=== PATIENT | female | born 1930 | race Caucasian/White ===

== ENCOUNTER 2016-09-09 11:37 | Emergency (ER) | payer MEDICARE ==
[~2016-09-09] VITALS: Ht 157.5 cm; Wt 71.0 kg
[~2016-09-09 11:37] MED LIST: AMLO2.5T PO; ATEN-104 PO; ATOR80TA PO; CALC-137 PO; CHLOR50 PO; LEVEMIR SQ; LISI-363 PO; NITR.4 SL; NOVOLOGP2 SQ; PROT40TA PO; SYSTSOL7 EACH EYE; TAB-TAB PO; TERA2CAP3 PO; VITA10002 PO; VITA20003 PO
[2016-09-09 11:54] VITALS: BP 171/90; PULSE 70; RESP 18; TEMP 97.8; O2SAT 98
[2016-09-09 11:59] VITALS: O2SAT 98
[2016-09-09] MEDS ORDERED: SODIUM CHLORIDE 0.9% FLUSH 5 ML FLUSH IVF PRN (12:00)
[2016-09-09] MEDS ORDERED: ALUMINUM/MAGNESIUM/SIMETH 30 ML CUP PO ONE (12:00)
[2016-09-09] MEDS ORDERED: LIDOCAINE VISCOUS 2% SOLN 15 ML UDC PO ONE (12:00)
[2016-09-09] MEDS ORDERED: PANTOPRAZOLE SODIUM 40 MG VIAL IVP ONE (12:00)
[2016-09-09 12:05] LABS: AUTOMATED NEUTROPHIL # 3.1 TH/MM3 (1.8-7.7); BASOPHIL % 0.4 % (0.0-2.0); EOSINOPHIL # 0.2 TH/MM3 (0-0.4); EOSINOPHIL % 3.2 % (0.0-4.0); HEMATOCRIT 38.8 % (35.0-46.0); HEMO FLAGS DIFF FINAL; LYMPH % 32.6 % (9.0-44.0); LYMPHOCYTE # 1.7 TH/MM3 (1.0-4.8); MEAN CELL VOLUME 82.5 FL (80.0-100.0); MEAN CORPUSCULAR HGB CONC 33.9 % (32.0-36.0); MONO % 7.5 % (0.0-8.0); NEUT % 56.3 % (16.0-70.0); PLATELET COUNT 127 TH/MM3 (150-450); RED BLOOD COUNT 4.71 MIL/MM3 (4.00-5.30); RED CELL DISTRIBUTION WIDTH 13.9 % (11.6-17.2); WHITE BLOOD COUNT 5.4 TH/MM3 (4.0-11.0)
[2016-09-09 12:11] LABS: CHLORIDE 103 MEQ/L (98-107); POTASSIUM 3.6 MEQ/L (3.5-5.1); SODIUM (NA) 140 MEQ/L (136-145)
[2016-09-09 12:14] LABS: ANION GAP 9 MEQ/L (5-15); BICARBONATE 28.5 MEQ/L (21.0-32.0)
[2016-09-09 12:15] LABS: BLOOD UREA NITROGEN 22 MG/DL (7-18)
[2016-09-09 12:18] LABS: ALT (GPT) 79 U/L (10-53); AST (GOT) 105 U/L (15-37); GLOMERULAR FILTRATION RATE 39 ML/MIN (>89)
[2016-09-09 12:19] LABS: TOTAL BILIRUBIN ADULT 0.6 MG/DL (0.2-1.0)
[2016-09-09 12:21] LABS: ALKALINE PHOSPHATASE 83 U/L (45-117)
--- NOTE | 2016-09-09 12:35 | PD ---
HPI . Epigastric pain Chief Complaint: Chest Pain Time Seen by Provider: 11:49 Travel History International Travel<30 days: No Contact w/Intl Traveler<30days: No Traveled to known affect area: No History of Present Illness HPI Patient presents with a 3 day history of epigastric pain. She states that the discomfort is improved with Pepto-Bismol. She states that her discomfort to be brought on by eating greasy fish. Patient reports positive previous similar episodes. She states that he has intermittent dyspepsia. She further states that her symptoms for the last 3 days have also been intermittent. She denies any associated symptoms such as shortness of breath, nausea or vomiting, diaphoresis. The patient is very reluctant to have any sort of testing done. She is not at all interested in having her heart evaluated. PFSH Past Medical History Blood Disorders: No Anxiety: Yes Depression: No Heart Rhythm Problems: No Cancer: No Cardiac Catheterization: No Cardiovascular Problems: Yes High Cholesterol: Yes Chemotherapy: No Chest Pain: No Congestive Heart Failure: No Diabetes: Yes (SINCE 10 YEARS AGO) Patient Takes Glucophage: No Diminished Hearing: Yes Endocrine: Yes Gastrointestinal Disorders: Yes (DIARRHEA DUE TO MEDICATIONS) GERD: Yes Genitourinary: No Hepatitis: No Hiatal Hernia: No Hypertension: Yes Immune Disorder: No Musculoskeletal: No Neurologic: Yes (MIGRAINE HEADACHE) Psychiatric: Yes Reproductive: No Respiratory: No Immunizations Current: Yes Radiation Therapy: No Thyroid Disease: No Tetanus Vaccination: Unknown Influenza Vaccination: Yes PNEUMOCCOCAL Vaccine (Year): 1 Menopausal: Yes Past Surgical History Body Medical Devices: ACID REFLEX Cholecystectomy: Yes Oral Surgery: Yes (WISDOM TEETH EXTRACT.) Pacemaker: No Other Surgery: No Family History Family Myocardial Infarction: Yes (MOTHER OF HEART ATTACK IN HER 70'S) Social History Alcohol Use: No Tobacco Use: No Substance Use: No Allergies-Medications (Allergen,Severity, Reaction): Coded Allergies: No Known Allergies (Verified , 09/09/16) Reported Meds & Prescriptions Reported Meds & Active Scripts Active Carafate (Sucralfate) 1 Gm Tab 1 Gm PO QID PRN On empty stomach Reported Vitamin D-3 (Cholecalciferol) 2,000 Unit Tab 1 Tab PO BID Tresiba Flextouch Pen Inj (Insulin Degludec Inj) 300 unit/3 ML Pen 50 Units SQ DAILY Terazosin (Terazosin HCl) 2 Mg Cap 4 Mg PO BID Systane Opth Drops (Polyethylene Glycol-Propylene Glycol Opth Drp) 0.4-0.3% Soln 1-2 Drop EACH EYE PRN PRN Shaq-E Complete (S-Adenosylmethionine) 400 Mg Tab 400 Mg PO DAILY Rosuvastatin (Rosuvastatin Calcium) 40 Mg Tab 40 Mg PO DAILY Red Yeast Rice (Red Yeast Rice Extract) 600 Mg Tab 1 Cap PO BID Omeprazole 20 Mg Tab 20 Mg PO DAILY Novolog Inj (Insulin Aspart) 1,000 Unit/10 Ml Vial 15 Units SQ TIDAC Multi Complete (Multiple Vitamins W/ Minerals) 1 Cap Cap 1 Tab PO DAILY Lisinopril 20 Mg Tab 20 Mg PO DAILY Curcumax Pro ([facility] [place] [facility]) 1 Tab Tab 1 Tab PO DAILY Cholesterol Defense (Nutritional Supplements) 1 Tab Tab 1 Tab PO BID Chlorthalidone 100 Mg Tab 100 Mg PO DAILY Atenolol 100 Mg Tab 100 Mg PO DAILY Aspirin 81 Mg Chew 81 Mg CHEW DAILY Aloe Vera Juice Liq (Aloe Vera Liq) 99.8% Liqd 5 Ml PO BID Review of Systems Except as stated in HPI: all other systems reviewed are Neg Cardiovascular: Positive: Chest Pain or Discomfort Respiratory: No: Shortness of Breath Gastrointestinal: Positive: Indigestion, No: Nausea, Vomiting, Diarrhea Physical Exam Narrative GENERAL: [place] elderly woman who is in no acute distress. SKIN: Warm and dry. HEAD: Atraumatic. Normocephalic. EYES: Pupils equal and round. ENT: No nasal bleeding or discharge. Mucous membranes pink and moist. NECK: Trachea midline. CARDIOVASCULAR: Regular rate and rhythm. Heart sounds are normal. RESPIRATORY: No accessory muscle use. Lungs are clear with full air movement throughout. GASTROINTESTINAL: Abdomen soft. Epigastric tenderness. No guarding or rebound. No right upper quadrant tenderness. Nondistended. MUSCULOSKELETAL: No obvious deformities. No edema. NEUROLOGICAL: Awake and alert. No obvious cranial nerve deficits. Motor grossly within normal limits. Normal speech. PSYCHIATRIC: Appropriate mood and affect; insight and judgment normal. Data Data Last Documented VS Vital Signs Date Time Temp Pulse Resp B/P Pulse Ox O2 Delivery O2 Flow Rate FiO2 09/09/16 12:47 58 18 189/90 98 Room Air 09/09/16 11:54 97.8 Orders Complete Blood Count With Diff (09/09/16 11:54) Comprehensive Metabolic Panel (09/09/16 11:54) Lipase (09/09/16 11:54) Abdomen, Flat & Upright (09/09/16 ) Iv Access Insert/Monitor (09/09/16 11:54) Ecg Monitoring (09/09/16 11:54) Oximetry (09/09/16 11:54) Pantoprazole Inj (Protonix Inj) (09/09/16 12:00) Sodium Chloride 0.9% Flush (Ns Flush) (09/09/16 12:00) Chest, Single Ap (09/09/16 11:54) Al-Mag Hy-Si 40-40-4 Mg/Ml Liq (Mag-Al P (09/09/16 12:00) Lidocaine 2% Viscous (Xylocaine 2% Visco (09/09/16 12:00) Labs Laboratory Tests Test 09/09/16 11:50 White Blood Count 5.4 TH/MM3 Red Blood Count 4.71 MIL/MM3 Hemoglobin 13.2 GM/DL Hematocrit 38.8 % Mean Corpuscular Volume 82.5 FL Mean Corpuscular Hemoglobin 28.0 PG Mean Corpuscular Hemoglobin 33.9 % Concent Red Cell Distribution Width 13.9 % Platelet Count 127 TH/MM3 Mean Platelet Volume 8.1 FL Neutrophils (%) (Auto) 56.3 % Lymphocytes (%) (Auto) 32.6 % Monocytes (%) (Auto) 7.5 % Eosinophils (%) (Auto) 3.2 % Basophils (%) (Auto) 0.4 % Neutrophils # (Auto) 3.1 TH/MM3 Lymphocytes # (Auto) 1.7 TH/MM3 Monocytes # (Auto) 0.4 TH/MM3 Eosinophils # (Auto) 0.2 TH/MM3 Basophils # (Auto) 0.0 TH/MM3 CBC Comment DIFF FINAL Differential Comment Sodium Level 140 MEQ/L Potassium Level 3.6 MEQ/L Chloride Level 103 MEQ/L Carbon Dioxide Level 28.5 MEQ/L Anion Gap 9 MEQ/L Blood Urea Nitrogen 22 MG/DL Creatinine 1.30 MG/DL Estimat Glomerular Filtration 39 ML/MIN Rate Random Glucose 146 MG/DL Calcium Level 9.5 MG/DL Total Bilirubin 0.6 MG/DL Aspartate Amino Transf 105 U/L (AST/SGOT) Alanine Aminotransferase 79 U/L (ALT/SGPT) Alkaline Phosphatase 83 U/L Total Protein 7.3 GM/DL Albumin 3.5 GM/DL Lipase 177 U/L MDM Medical Decision Making Medical Screen Exam Complete: Yes Emergency Medical Condition: Yes Medical Record Reviewed: Yes (records reviewed. Patient has been seen with similar symptoms in the past. She has adamantly refused both exercise and nuclear stress testing.) Interpretation(s) EKG shows a sinus rhythm with a left bundle branch block. This is changed from her most recent EKG done in 2013. She did not have left bundle branch block at that time. Differential Diagnosis Differential diagnosis of chest pain includes but is not limited to musculoskeletal pain, pulmonary embolism, acute coronary syndrome, pneumonia, pleurisy Narrative Course Patient presents with epigastric pain. She tells us upfront that she is not interested in a cardiac evaluation. CBC & BMP Diagram 09/09/16 11:50 AST is 105, ALT 79, alkaline phosphatase 83, lipase 177. Chest and abdominal x-rays are negative for acute process. Those films were independently viewed by me. The patient reports that her epigastric pain is resolved. The patient is on Nexium. I will give her a prescription for Carafate that she can use as needed. I will have her continue the Nexium. Diagnosis Primary Impression: Epigastric pain Scripts Sucralfate (Carafate)1 Gm Tab1 Gm PO QID PRN (epigastric pain) #120 TAB Ref 0 On empty stomach Prov:Dunia Hernandez MD 09/09/16 Disposition: 01 DISCHARGE HOME Condition: Stable Dunia Hernandez MD Sep 09, 2016 12:35
[2016-09-09] MEDS ORDERED: CHLO100T8 PO (12:40)
[2016-09-09] MEDS ORDERED: [UNRECOGNIZED DRUG - CODE] PO (12:40)
[2016-09-09] MEDS ORDERED: ATEN100T PO (12:40)
[2016-09-09] MEDS ORDERED: NOVOLOGP2 SQ (12:40)
[2016-09-09] MEDS ORDERED: LISI-515 PO (12:40)
[2016-09-09] MEDS ORDERED: ROSU1TAB10 PO (12:40)
[2016-09-09] MEDS ORDERED: INSU1INJ14 SQ (12:40)
[2016-09-09] MEDS ORDERED: [UNRECOGNIZED DRUG - CODE] PO (12:40)
[2016-09-09] MEDS ORDERED: MULTCAP13 PO (12:40)
[2016-09-09] MEDS ORDERED: CHOL1TAB42 PO (12:40)
[2016-09-09] MEDS ORDERED: CHOLTAB PO (12:40)
[2016-09-09] MEDS ORDERED: ASPI81CH CHEW (12:40)
[2016-09-09] MEDS ORDERED: TERA2CAP3 PO (12:40)
[2016-09-09] MEDS ORDERED: RED600TA PO (12:40)
[2016-09-09] MEDS ORDERED: OMEP20TA PO (12:40)
[2016-09-09] MEDS ORDERED: ALOELIQ9 PO (12:40)
[2016-09-09] MEDS ORDERED: SYSTSOL EACH EYE (12:40)
--- NOTE | 2016-09-09 12:46 | RADHPO ---
EXAM DATE/TIME: 09/09/2016 12:30 [facility] COMPARISON: CHEST SINGLE AP, December 15, 2013, 10:42. INDICATIONS : Mid chest pain. Burning sensation. MEDICAL HISTORY : Hypertension. Hypercholesterolemia. Gastroesophageal reflux disease. Diabetic. SURGICAL HISTORY : Cholecystectomy. ENCOUNTER: Initial ACUITY: 4 - 6 days PAIN SCORE: 0/10 LOCATION: middle chest FINDINGS: A single view of the chest demonstrates the lungs to be symmetrically aerated without evidence of mas s, infiltrate or effusion. The cardiomediastinal contours are unremarkable with mild atherosclerotic changes of aorta calcification in the non-and unwinding of the descending aorta.. Osseous structure s are intact with stable marginal spurring of the thoracic spine. CONCLUSION: No acute disease. No significant change has occurred. Romeo Avila MD on September 09, 2016 at 12:44 Board Certified Radiologist. This report was verified electronically.
[2016-09-09 12:47] VITALS: BP 189/90; PULSE 58; RESP 18; O2SAT 98
[2016-09-09] MEDS ORDERED: CARA1TAB6 PO (12:49)
--- NOTE | 2016-09-09 12:53 | RADHPO ---
EXAM DATE/TIME: 09/09/2016 12:26 [facility] COMPARISON: No previous studies available for comparison. INDICATIONS : Epigastric pain. Burning sensation. MEDICAL HISTORY : Hypertension. Hypercholesterolemia. Gastroesophageal reflux disease. Diabetic. SURGICAL HISTORY : Cholecystectomy. ENCOUNTER: Initial ACUITY: 4 - 6 days PAIN SCORE: 0/10 LOCATION: mid upper abdomen FINDINGS: Supine and upright views of the abdomen were performed. The abdominal bowel gas pattern is normal. No air fluid levels are seen. No abnormal masses, calcifications, or organomegaly is seen. The visu alized lower lungs are clear. No evidence of free intraperitoneal gas. The osseous structures are u nremarkable. CONCLUSION: Benign abdomen Romeo Avila MD on September 09, 2016 at 12:51 Board Certified Radiologist. This report was verified electronically.
--- NOTE | 2016-09-09 21:37 | EKG ---
Date Performed: 09/09/2016 Time Performed: 11:45:56 PTAGE: 86 years EKG: Sinus rhythm Left axis deviation Left bundle branch block Abnormal ECG PREVIOUS TRACING : 12/16/2013 02.47 Compared to the previous tracing, LBBB now present DOCTOR: Nia Knutson Interpretating Date/Time 09/09/2016 21:36:58
[2016-09-10] MEDS ORDERED: OMEP40CA2 PO (11:33)
[2016-09-10] MEDS ORDERED: ZOFR4TAB3 SL (11:33)
== END 2016-09-09 13:46 | disposition home or self-care (01) ==
LOC: PHED 11:37
DX: R10.13 Epigastric pain (principal); F41.9 Anxiety disorder, unspecified; E11.9 Type 2 diabetes mellitus without complications; Z79.4 Long term (current) use of insulin; E78.00 Pure hypercholesterolemia, unspecified; I10 Essential (primary) hypertension
CPT/HCPCS: 71010; 74020; 80053; 83690; 85025; 93005; 96374; 99284; C9113

== ENCOUNTER 2016-09-10 07:49 | Emergency (ER) | payer MEDICARE ==
[~2016-09-10 07:49] MED LIST changes: +ALOELIQ9 PO; +ASPI81CH CHEW; +ATEN100T PO; +CARA1TAB6 PO; +CHLO100T8 PO; +CHOL1TAB42 PO; +CHOLTAB PO; +INSU1INJ14 SQ; +LISI-515 PO; +MULTCAP13 PO; +OMEP20TA PO; +RED600TA PO; +ROSU1TAB10 PO; +SYSTSOL EACH EYE; +[UNRECOGNIZED DRUG - CODE] PO; +[UNRECOGNIZED DRUG - CODE] PO
[2016-09-10 08:09] VITALS: BP 138/93; PULSE 63; RESP 18; TEMP 97.8; O2SAT 96
[2016-09-10 09:20] VITALS: BP 147/70; PULSE 69; RESP 16; O2SAT 96
--- NOTE | 2016-09-10 09:23 | PD ---
HPI Chief Complaint: Abdominal Pain Time Seen by Provider: 09:06 Travel History International Travel<30 days: No Contact w/Intl Traveler<30days: No Traveled to known affect area: No History of Present Illness HPI 86yo F with PMH of HTN, DM presents to the ED with c/o abdominal pain for 4 days. Pain is mainly epigastric and pressure like. She was just evaluated here at [facility] yesterday for the same pain. She had negative CXR and xray abdomen and was given GI cocktail and pantoprazole. She was discharged with [facility] and states she took it this morning at 2am and felt that it made the pain worst. Pt had NBNB vomiting here. Denies any fever, chest pain, sob, diarrhea or urinary complaints. PSH include cholecystectomy. PFSH Past Medical History Blood Disorders: No Anxiety: Yes Depression: No Heart Rhythm Problems: No Cancer: No Cardiac Catheterization: No Cardiovascular Problems: Yes High Cholesterol: Yes Chemotherapy: No Chest Pain: No Congestive Heart Failure: No Diabetes: Yes Patient Takes Glucophage: No Diminished Hearing: Yes Endocrine: Yes Gastrointestinal Disorders: Yes GERD: Yes Genitourinary: No Hepatitis: No Hiatal Hernia: No Hypertension: Yes Immune Disorder: No Musculoskeletal: No Neurologic: Yes (MIGRAINE HEADACHE) Psychiatric: Yes Reproductive: No Respiratory: No Immunizations Current: Yes Radiation Therapy: No Thyroid Disease: No Tetanus Vaccination: > 5 Years PNEUMOCCOCAL Vaccine (Year): 1 Menopausal: Yes Past Surgical History Body Medical Devices: ACID REFLEX Cholecystectomy: Yes Oral Surgery: Yes (WISDOM TEETH EXTRACT.) Pacemaker: No Other Surgery: No Family History Family Myocardial Infarction: Yes (MOTHER OF HEART ATTACK IN HER 70'S) Social History Alcohol Use: No Tobacco Use: No Substance Use: No Allergies-Medications (Allergen,Severity, Reaction): Coded Allergies: No Known Allergies (Verified , 09/09/16) Reported Meds & Prescriptions Reported Meds & Active Scripts Active Zofran Odt (Ondansetron Odt) 4 Mg Tab 4 Mg SL Q6HR PRN Omeprazole 40 Mg Cap 40 Mg PO DAILY 7 Days Carafate (Sucralfate) 1 Gm Tab 1 Gm PO QID PRN On empty stomach Reported Vitamin D-3 (Cholecalciferol) 2,000 Unit Tab 1 Tab PO BID Tresiba Flextouch Pen Inj (Insulin Degludec Inj) 300 unit/3 ML Pen 50 Units SQ DAILY Terazosin (Terazosin HCl) 2 Mg Cap 4 Mg PO BID Systane Opth Drops (Polyethylene Glycol-Propylene Glycol Opth Drp) 0.4-0.3% Soln 1-2 Drop EACH EYE PRN PRN Shaq-E Complete (S-Adenosylmethionine) 400 Mg Tab 400 Mg PO DAILY Rosuvastatin (Rosuvastatin Calcium) 40 Mg Tab 40 Mg PO DAILY Red Yeast Rice (Red Yeast Rice Extract) 600 Mg Tab 1 Cap PO BID Omeprazole 20 Mg Tab 20 Mg PO DAILY Novolog Inj (Insulin Aspart) 1,000 Unit/10 Ml Vial 15 Units SQ TIDAC Multi Complete (Multiple Vitamins W/ Minerals) 1 Cap Cap 1 Tab PO DAILY Lisinopril 20 Mg Tab 20 Mg PO DAILY Curcumax Pro ([facility] Natural Products) 1 Tab Tab 1 Tab PO DAILY Cholesterol Defense (Nutritional Supplements) 1 Tab Tab 1 Tab PO BID Chlorthalidone 100 Mg Tab 100 Mg PO DAILY Atenolol 100 Mg Tab 100 Mg PO DAILY Aspirin 81 Mg Chew 81 Mg CHEW DAILY Aloe Vera Juice Liq (Aloe Vera Liq) 99.8% Liqd 5 Ml PO BID Review of Systems Except as stated in HPI: all other systems reviewed are Neg Physical Exam Narrative GENERAL: 86yo F in mild distress. SKIN: Warm and dry. HEAD: Atraumatic. Normocephalic. NECK: Trachea midline. No JVD. CARDIOVASCULAR: Regular rate and rhythm. No murmur appreciated. RESPIRATORY: No accessory muscle use. Clear to auscultation. Breath sounds equal bilaterally. GASTROINTESTINAL: Abdomen soft, +TTP epigastric region. No rebound tenderness or guarding. MUSCULOSKELETAL: No obvious deformities. No clubbing. No cyanosis. No edema. NEUROLOGICAL: Awake and alert. No obvious cranial nerve deficits. Motor grossly within normal limits. Normal speech. PSYCHIATRIC: Appropriate mood and affect; insight and judgment normal. Data Data Last Documented VS Vital Signs Date Time Temp Pulse Resp B/P Pulse Ox O2 Delivery O2 Flow Rate FiO2 09/10/16 11:30 68 16 168/72 96 09/10/16 10:28 Room Air 09/10/16 08:09 97.8 Orders Complete Blood Count With Diff (09/10/16 09:18) Comprehensive Metabolic Panel (09/10/16 09:18) Lipase (09/10/16 09:18) Iv Access Insert/Monitor (09/10/16 09:18) Ecg Monitoring (09/10/16 09:18) Oximetry (09/10/16 09:18) Sodium Chloride 0.9% Flush (Ns Flush) (09/10/16 09:30) Electrocardiogram (09/10/16 09:18) Ondansetron Inj (Zofran Inj) (09/10/16 09:30) Ketorolac Inj (Toradol Inj) (09/10/16 09:30) Troponin I (09/10/16 09:18) Urinalysis - C+S If Indicated (09/10/16 09:23) Ondansetron Inj (Zofran Inj) (09/10/16 09:45) Ct Abd/Pel W/O Iv Contrast (09/10/16 ) Labs Laboratory Tests Test 09/10/16 09/10/16 09:25 10:25 White Blood Count 6.3 TH/MM3 Red Blood Count 4.80 MIL/MM3 Hemoglobin 13.2 GM/DL Hematocrit 39.9 % Mean Corpuscular Volume 83.1 FL Mean Corpuscular Hemoglobin 27.5 PG Mean Corpuscular Hemoglobin 33.1 % Concent Red Cell Distribution Width 14.4 % Platelet Count 134 TH/MM3 Mean Platelet Volume 8.7 FL Neutrophils (%) (Auto) 81.7 % Lymphocytes (%) (Auto) 10.3 % Monocytes (%) (Auto) 4.8 % Eosinophils (%) (Auto) 1.2 % Basophils (%) (Auto) 2.0 % Neutrophils # (Auto) 5.2 TH/MM3 Lymphocytes # (Auto) 0.6 TH/MM3 Monocytes # (Auto) 0.3 TH/MM3 Eosinophils # (Auto) 0.1 TH/MM3 Basophils # (Auto) 0.1 TH/MM3 CBC Comment DIFF FINAL Differential Comment Sodium Level 138 MEQ/L Potassium Level 3.7 MEQ/L Chloride Level 101 MEQ/L Carbon Dioxide Level 26.7 MEQ/L Anion Gap 10 MEQ/L Blood Urea Nitrogen 24 MG/DL Creatinine 1.30 MG/DL Estimat Glomerular Filtration 39 ML/MIN Rate Random Glucose 252 MG/DL Calcium Level 9.1 MG/DL Total Bilirubin 1.5 MG/DL Aspartate Amino Transf 330 U/L (AST/SGOT) Alanine Aminotransferase 228 U/L (ALT/SGPT) Alkaline Phosphatase 128 U/L Troponin I LESS THAN 0.02 NG/ML Total Protein 7.3 GM/DL Albumin 3.5 GM/DL Lipase 144 U/L Urine Collection Type CLEAN CATCH Urine Color YELLOW Urine Turbidity CLEAR Urine pH 5.5 Urine Specific [place] 1.020 Urine Protein TRACE mg/dL Urine Glucose (UA) NEG mg/dL Urine Ketones NEG mg/dL Urine Occult Blood NEG Urine Nitrite NEG Urine Bilirubin NEG Urine Leukocyte Esterase NEG Urine RBC 0-3 /hpf Urine WBC 0-2 /hpf Urine Squamous Epithelial > 8 /hpf Cells Urine Bacteria OCC /hpf Microscopic Urinalysis Comment CULT NOT INDICATED Urine Collection Time 10:25 MDM Medical Decision Making Medical Screen Exam Complete: Yes Emergency Medical Condition: Yes Interpretation(s) EKG: NSR 81bpm. LBBB. LAD. Q wave III, aVF, V2, V3. Unchanged from prior. Differential Diagnosis Pancreatitis vs. gastritis vs. colitis vs. obstruction Narrative Course 86yo F presents to the ED with worsening abdominal pain. Pain is mainly epigastric. Labs reviewed, no leukocytosis. LFTs, bilirubin and alk phos is elevated compared to yesterday. Troponin negative. Lipase normal. CTa/p negative. No dilatation of biliary tree. Pt given zofran and toradol 30mg IV. Pt is no longer nauseous and pain has resolved. Pt reevaluated at bedside. Abdominal exam showed no RUQ and epigastric tenderness. No rebound tenderness or guarding. VS stable. UA negative. Will have pt follow up with GI as outpatient. Diagnosis Primary Impression: Abdominal pain Qualified Code: R10.13 - Epigastric pain Referrals: Marquita Boswell MD 1 day Abdominal pain with elevated liver enzymes Patient Instructions: General Instructions Departure Forms: Tests/Procedures Additional Instructions: Please follow up with GI as outpatient in 1-2 days. Return to the ED if symptoms worsen. Med/Other Pt SpecificInfo: Prescription(s) given Scripts Ondansetron Odt (Zofran Odt)4 Mg Tab4 Mg SL Q6HR PRN (Nausea/Vomiting) #6 TAB Ref 0 Prov:JaceDorcas 09/10/16 Omeprazole 40 Mg Cap40 Mg PO DAILY 7 Days Ref 0 Prov:Dorcas Mccormick DO 09/10/16 Disposition: 01 DISCHARGE HOME Condition: Stable Mccormick,Dorcas DO Sep 10, 2016 09:23
[2016-09-10] MEDS ORDERED: KETOROLAC TROMETHAMINE 30 MG/ML (IVP) VIAL IVP ONE (09:30)
[2016-09-10] MEDS ORDERED: ONDANSETRON HCL 4 MG/2 ML VIAL IM ONE (09:30)
[2016-09-10] MEDS ORDERED: SODIUM CHLORIDE 0.9% FLUSH 5 ML FLUSH IVF PRN (09:30)
[2016-09-10 09:37] LABS: AUTOMATED NEUTROPHIL # 5.2 TH/MM3 (1.8-7.7); BASOPHIL # 0.1 TH/MM3 (0-0.2); EOSINOPHIL # 0.1 TH/MM3 (0-0.4); EOSINOPHIL % 1.2 % (0.0-4.0); HEMATOCRIT 39.9 % (35.0-46.0); LYMPH % 10.3 % (9.0-44.0); LYMPHOCYTE # 0.6 TH/MM3 (1.0-4.8); MEAN CELL VOLUME 83.1 FL (80.0-100.0); MEAN CORPUSCULAR HEMOGLOBIN 27.5 PG (27.0-34.0); MEAN CORPUSCULAR HGB CONC 33.1 % (32.0-36.0); MONO % 4.8 % (0.0-8.0); NEUT % 81.7 % (16.0-70.0); PLATELET COUNT 134 TH/MM3 (150-450); RED CELL DISTRIBUTION WIDTH 14.4 % (11.6-17.2); WHITE BLOOD COUNT 6.3 TH/MM3 (4.0-11.0)
[2016-09-10 09:39] LABS: HEMO FLAGS DIFF FINAL
[2016-09-10] MEDS ORDERED: ONDANSETRON HCL 4 MG/2 ML VIAL IV PUSH ONE (09:45)
[2016-09-10 09:58] LABS: ALKALINE PHOSPHATASE 128 U/L (45-117); ALT (GPT) 228 U/L (10-53); ANION GAP 10 MEQ/L (5-15); AST (GOT) 330 U/L (15-37); BICARBONATE 26.7 MEQ/L (21.0-32.0); BLOOD UREA NITROGEN 24 MG/DL (7-18); CHLORIDE 101 MEQ/L (98-107); GLOMERULAR FILTRATION RATE 39 ML/MIN (>89); POTASSIUM 3.7 MEQ/L (3.5-5.1); SODIUM (NA) 138 MEQ/L (136-145); TOTAL BILIRUBIN ADULT 1.5 MG/DL (0.2-1.0)
[2016-09-10 10:28] VITALS: BP 178/77; PULSE 66; RESP 16; O2SAT 96
[2016-09-10 10:38] LABS: BLOOD, URINE NEG (NEG); GLUCOSE,URINE NEG (NEG); KETONE, URINE NEG (NEG); NITRITE,URINE NEG (NEG); PH, URINE 5.5 (5.0-8.5)
[2016-09-10 10:48] LABS: BACTERIA, URINE OCC /hpf; COMMENT (UR) CULT NOT INDICATED; CULTURE IF INDICATED CULT NOT INDICATED; METHOD OF COLLECTION CLEAN CATCH; RBC, URINE 0-3 /hpf (0-3); SQUAMOUS EPITHELIAL CELL URINE > 8 /hpf (0-5); URINE COLOR YELLOW (YELLW/STRAW); WBC, URINE 0-2 /hpf (0-5)
--- NOTE | 2016-09-10 11:03 | RADHPO ---
EXAM DATE/TIME: 09/10/2016 10:44 [facility] COMPARISON: No previous studies available for comparison. INDICATIONS : Epigastric pain x 4 days. ORAL CONTRAST: No oral contrast ingested. RADIATION DOSE: 12.43 CTDIvol (mGy) MEDICAL HISTORY : Diabetes mellitus type 2. Gastroesophageal reflux disease. Cardiovascular diseaseHypertension. SURGICAL HISTORY : Cholecystectomy. ENCOUNTER: Initial ACUITY: 4 - 6 days PAIN SCALE: 4/10 LOCATION: Epigastric. TECHNIQUE: Volumetric scanning of the abdomen and pelvis was performed. Using automated exposure control and ad justment of the mA and/or kV according to patient size, radiation dose was kept as low as reasonably achievable to obtain optimal diagnostic quality images. FINDINGS: LOWER LUNGS: The visualized lower lungs are clear. LIVER: Homogeneous density without lesion for noncontrast technique. There is no dilation of the biliary tr ee. SPLEEN: Normal size without lesion. PANCREAS: Within normal limits. KIDNEYS: Normal in size and shape. There is no mass, stone, or hydronephrosis. ADRENAL GLANDS: Within normal limits. VASCULAR: There is no aortic aneurysm. BOWEL/MESENTERY: The stomach, small bowel, and colon demonstrate no acute abnormality. There is no free intraperitone al air or fluid. ABDOMINAL WALL: Within normal limits. RETROPERITONEUM: There is no lymphadenopathy. BLADDER: No wall thickening or mass. REPRODUCTIVE: Within normal limits. INGUINAL: There is no lymphadenopathy or hernia. MUSCULOSKELETAL: Rounded area of decreased density left L1 vertebral body with internal trabeculation suggests a heman gioma. CONCLUSION: Negative CT abdomen/pelvis without intravenous and without oral contrast. Jesus Celestin MD on September 10, 2016 at 10:59 Board Certified Radiologist. This report was verified electronically.
[2016-09-10 11:30] VITALS: BP 168/72; PULSE 68; RESP 16; O2SAT 96
[2016-09-10] MEDS ORDERED: ZOFR4TAB3 SL (11:33)
[2016-09-10] MEDS ORDERED: OMEP40CA2 PO (11:33)
--- NOTE | 2016-09-10 18:43 | EKG ---
Date Performed: 09/10/2016 Time Performed: 09:39:14 PTAGE: 86 years EKG: Sinus rhythm Left axis deviation Left bundle branch block Abnormal ECG PREVIOUS TRACING : 09/09/2016 11.45 Compared to prior tracing no significant change DOCTOR: Bib Brown Interpretating Date/Time 09/10/2016 18:42:26
== END 2016-09-10 12:06 | disposition home or self-care (01) ==
LOC: PHED 07:49
DX: R10.13 Epigastric pain (principal); R74.8 Abnormal levels of other serum enzymes; I10 Essential (primary) hypertension; E11.9 Type 2 diabetes mellitus without complications; E78.00 Pure hypercholesterolemia, unspecified; K21.9 Gastro-esophageal reflux disease without esophagitis; I44.7 Left bundle-branch block, unspecified
CPT/HCPCS: 74176; 80053; 81001; 83690; 84484; 85025; 93005; 96374; 96375; 99284; J1885; J2405

== ENCOUNTER 2016-09-16 08:06 | Inpatient (IN) | payer MEDICARE ==
[2016-09-16] VITALS (7 sets, daily range): BP systolic 156–196; BP diastolic 62–88; PULSE 56–82; RESP 16–18; TEMP 98.5–100; O2SAT 95–99
[~2016-09-16] VITALS: Ht 157.5 cm; Wt 74.5 kg
[~2016-09-16 08:06] MED LIST changes: -AMLO2.5T PO; -ATEN-104 PO; -ATOR80TA PO; -CALC-137 PO; -CHLOR50 PO; -LEVEMIR SQ; -LISI-363 PO; -NITR.4 SL; +OMEP40CA2 PO; -PROT40TA PO; -SYSTSOL7 EACH EYE; -TAB-TAB PO; -VITA10002 PO; -VITA20003 PO; +ZOFR4TAB3 SL
--- NOTE | 2016-09-16 08:38 | PD ---
HPI Chief Complaint: GI Complaint Time Seen by Provider: 08:24 Travel History International Travel<30 days: No Contact w/Intl Traveler<30days: No Traveled to known affect area: No History of Present Illness HPI This is an 86-year-old female who presents to the emergency department having 2 years of intermittent epigastric abdominal pain. She reports that over the past week ever since she ate some greasy finish her pain has gotten a lot worse. She describes it as sharp in the upper abdomen, constant, worse with eating and making her not want to eat, associated with some nausea but no vomiting. She denies any fevers or chills. She was seen twice in the emergency department last week. On her second visit she had abnormal LFTs and was referred to Dr. Boswell. She has an appointment later today but her pain got so bad this morning and she feels very weak so she came back to the emergency department. PFSH Past Medical History Blood Disorders: No Anxiety: Yes Depression: No Heart Rhythm Problems: No Cancer: No Cardiac Catheterization: No Cardiovascular Problems: Yes High Cholesterol: Yes Chemotherapy: No Chest Pain: No Congestive Heart Failure: No Diabetes: Yes Patient Takes Glucophage: No Diminished Hearing: Yes Endocrine: Yes Gastrointestinal Disorders: Yes GERD: Yes Genitourinary: No Hepatitis: No Hiatal Hernia: No Hypertension: Yes Immune Disorder: No Implanted Vascular Access Dvce: No Medical other: No Musculoskeletal: No Neurologic: Yes (MIGRAINE HEADACHE) Psychiatric: Yes Reproductive: No Respiratory: No Immunizations Current: Yes Radiation Therapy: No Thyroid Disease: No PNEUMOCCOCAL Vaccine (Year): 1 ?: Not Menopausal: Yes Past Surgical History Body Medical Devices: ACID REFLEX Cholecystectomy: Yes Oral Surgery: Yes (WISDOM TEETH EXTRACT.) Pacemaker: No Other Surgery: No Family History Family Myocardial Infarction: Yes (MOTHER OF HEART ATTACK IN HER 70'S) Social History Alcohol Use: No Tobacco Use: No Substance Use: No Allergies-Medications (Allergen,Severity, Reaction): Coded Allergies: No Known Allergies (Verified , 09/16/16) Reported Meds & Prescriptions Reported Meds & Active Scripts Active Zofran Odt (Ondansetron Odt) 4 Mg Tab 4 Mg SL Q6HR PRN Omeprazole 40 Mg Cap 40 Mg PO DAILY 7 Days Carafate (Sucralfate) 1 Gm Tab 1 Gm PO QID PRN On empty stomach Reported Vitamin D-3 (Cholecalciferol) 2,000 Unit Tab 1 Tab PO BID Tresiba Flextouch Pen Inj (Insulin Degludec Inj) 300 unit/3 ML Pen 50 Units SQ DAILY Terazosin (Terazosin HCl) 2 Mg Cap 4 Mg PO BID Systane Opth Drops (Polyethylene Glycol-Propylene Glycol Opth Drp) 0.4-0.3% Soln 1-2 Drop EACH EYE PRN PRN Shaq-E Complete (S-Adenosylmethionine) 400 Mg Tab 400 Mg PO DAILY Rosuvastatin (Rosuvastatin Calcium) 40 Mg Tab 40 Mg PO DAILY Red Yeast Rice (Red Yeast Rice Extract) 600 Mg Tab 1 Cap PO BID Omeprazole 20 Mg Tab 20 Mg PO DAILY Novolog Inj (Insulin Aspart) 1,000 Unit/10 Ml Vial 15 Units SQ TIDAC Multi Complete (Multiple Vitamins W/ Minerals) 1 Cap Cap 1 Tab PO DAILY Lisinopril 20 Mg Tab 20 Mg PO DAILY Curcumax Pro ([employer] Natural Products) 1 Tab Tab 1 Tab PO DAILY Cholesterol Defense (Nutritional Supplements) 1 Tab Tab 1 Tab PO BID Chlorthalidone 100 Mg Tab 100 Mg PO DAILY Atenolol 100 Mg Tab 100 Mg PO DAILY Aspirin 81 Mg Chew 81 Mg CHEW DAILY Aloe Vera Juice Liq (Aloe Vera Liq) 99.8% Liqd 5 Ml PO BID Review of Systems Except as stated in HPI: all other systems reviewed are Neg Physical Exam Narrative GENERAL: Frail elderly female, unwell-appearing SKIN: Warm and dry. HEAD: Atraumatic. Normocephalic. EYES: Pupils equal and round. No injection or drainage. Scleral icterus.. ENT: Dry mucous membranes NECK: Trachea midline. CARDIOVASCULAR: Regular rate and rhythm. No murmur appreciated. RESPIRATORY: Clear to auscultation. Breath sounds equal bilaterally. GASTROINTESTINAL: Abdomen soft, tender to palpation in the epigastrium with no rebound or guarding. MUSCULOSKELETAL: No obvious deformities. NEUROLOGICAL: Awake and alert. No obvious cranial nerve deficits. Moving all extremities. PSYCHIATRIC: Appropriate mood and affect; insight and judgment normal. Data Data Last Documented VS Vital Signs Date Time Temp Pulse Resp B/P Pulse Ox O2 Delivery O2 Flow Rate FiO2 09/16/16 10:09 82 18 162/68 98 Room Air 09/16/16 08:16 98.5 Orders Complete Blood Count With Diff (3/1/17 08:34) Comprehensive Metabolic Panel (09/16/16 08:34) Lipase (09/16/16 08:34) ^ Insert Iv (09/16/16 08:34) Us Abdomen Liver (09/16/16 ) Morphine Inj (Morphine Inj) (09/16/16 08:45) Ondansetron Inj (Zofran Inj) (09/16/16 08:45) Sodium Chlorid 0.9% 500 Ml Inj (Ns 500 M (09/16/16 08:45) Tylenol (Acetaminophen) (09/16/16 09:14) Labs Laboratory Tests Test 09/16/16 08:44 White Blood Count 6.8 TH/MM3 Red Blood Count 4.67 MIL/MM3 Hemoglobin 13.0 GM/DL Hematocrit 38.7 % Mean Corpuscular Volume 82.8 FL Mean Corpuscular Hemoglobin 27.8 PG Mean Corpuscular Hemoglobin 33.6 % Concent Red Cell Distribution Width 14.4 % Platelet Count 142 TH/MM3 Mean Platelet Volume 8.2 FL Neutrophils (%) (Auto) 76.7 % Lymphocytes (%) (Auto) 11.0 % Monocytes (%) (Auto) 10.6 % Eosinophils (%) (Auto) 1.2 % Basophils (%) (Auto) 0.5 % Neutrophils # (Auto) 5.3 TH/MM3 Lymphocytes # (Auto) 0.7 TH/MM3 Monocytes # (Auto) 0.7 TH/MM3 Eosinophils # (Auto) 0.1 TH/MM3 Basophils # (Auto) 0.0 TH/MM3 CBC Comment DIFF FINAL Differential Comment Sodium Level 138 MEQ/L Potassium Level 3.5 MEQ/L Chloride Level 102 MEQ/L Carbon Dioxide Level 26.0 MEQ/L Anion Gap 10 MEQ/L Blood Urea Nitrogen 26 MG/DL Creatinine 1.30 MG/DL Estimat Glomerular Filtration 39 ML/MIN Rate Random Glucose 196 MG/DL Calcium Level 9.1 MG/DL Total Bilirubin 2.1 MG/DL Aspartate Amino Transf 231 U/L (AST/SGOT) Alanine Aminotransferase 179 U/L (ALT/SGPT) Alkaline Phosphatase 196 U/L Total Protein 7.4 GM/DL Albumin 3.5 GM/DL Lipase 204 U/L Acetaminophen Level LESS THAN 2.0 MCG/ML MDM Medical Decision Making Medical Screen Exam Complete: Yes Emergency Medical Condition: Yes Interpretation(s) Afebrile, no tachycardia, hypertensive No leukocytosis Mild renal insufficiency LFTs are elevated with a total bilirubin of 2.1 which is higher than 1 week ago Ultrasound: Choledocholithiasis with a dilated common bowel duct Differential Diagnosis Choledocholithiasis, primary sclerosing cholangitis,malignancy Narrative Course This is an 86-year-old female who presents to the emergency department with epigastric abdominal pain associated with jaundice. She is placed on a monitor and an IV was established. She has elevated liver function tests and total bilirubin on labs. I ordered a right upper quadrant ultrasound which demonstrates choledocholithiasis. I think given the patient is symptomatic she requires admission for possible ERCP. Diagnosis Primary Impression: Choledocholithiasis with obstruction Qualified Code: K80.51 - Calculus of bile duct without cholecystitis with obstruction Admitting Information Admitting Physician Requests: Admit Nicole Mccann MD Sep 16, 2016 08:37
[2016-09-16] MEDS ORDERED: MORPHINE SULFATE 4 MG/ML INJ IV PUSH ONE (08:45)
[2016-09-16] MEDS ORDERED: SODIUM CHLORID 0.9% 500 ML INJ 500 ML IV ONE (08:45)
[2016-09-16] MEDS ORDERED: ONDANSETRON HCL 4 MG/2 ML VIAL IV PUSH ONE (08:45)
[2016-09-16 08:58] LABS: CHLORIDE 102 MEQ/L (98-107); POTASSIUM 3.5 MEQ/L (3.5-5.1); SODIUM (NA) 138 MEQ/L (136-145)
[2016-09-16 09:05] LABS: AUTOMATED NEUTROPHIL # 5.3 TH/MM3 (1.8-7.7); BASOPHIL % 0.5 % (0.0-2.0); EOSINOPHIL # 0.1 TH/MM3 (0-0.4); EOSINOPHIL % 1.2 % (0.0-4.0); HEMATOCRIT 38.7 % (35.0-46.0); HEMO FLAGS DIFF FINAL; LYMPHOCYTE # 0.7 TH/MM3 (1.0-4.8); MEAN CELL VOLUME 82.8 FL (80.0-100.0); MEAN CORPUSCULAR HEMOGLOBIN 27.8 PG (27.0-34.0); MEAN CORPUSCULAR HGB CONC 33.6 % (32.0-36.0); MONO % 10.6 % (0.0-8.0); NEUT % 76.7 % (16.0-70.0); PLATELET COUNT 142 TH/MM3 (150-450); RED BLOOD COUNT 4.67 MIL/MM3 (4.00-5.30); RED CELL DISTRIBUTION WIDTH 14.4 % (11.6-17.2); WHITE BLOOD COUNT 6.8 TH/MM3 (4.0-11.0)
[2016-09-16 09:09] LABS: ANION GAP 10 MEQ/L (5-15); BLOOD UREA NITROGEN 26 MG/DL (7-18)
[2016-09-16 09:12] LABS: AST (GOT) 231 U/L (15-37); GLOMERULAR FILTRATION RATE 39 ML/MIN (>89)
[2016-09-16 09:13] LABS: ALT (GPT) 179 U/L (10-53)
[2016-09-16 09:15] LABS: TOTAL BILIRUBIN ADULT 2.1 MG/DL (0.2-1.0)
[2016-09-16 09:16] LABS: ALKALINE PHOSPHATASE 196 U/L (45-117)
--- NOTE | 2016-09-16 10:49 | RADHPO ---
EXAM DATE/TIME: 09/16/2016 09:51 [facility] COMPARISON: No previous studies available for comparison. INDICATIONS : Jaundice. Abdominal pain and nausea. MEDICAL HISTORY : Gastroesophageal reflux disease. Hypertension. Cardiovascular disease Hypercholesterol. Diabetic. SURGICAL HISTORY : Cholecystectomy. ENCOUNTER: Initial ACUITY: 1 week PAIN SCORE: 0/10 LOCATION: Bilateral upper quadrant MEASUREMENTS: LIVER: 15.1 cm length COMMON DUCT: 13 mm RIGHT KIDNEY: 10.4 x 4.4 x 5.0 cm SPLEEN: 12.8 cm length FINDINGS: LIVER: Normal echotexture without focal lesion. There is ductal dilatation. COMMON DUCT: Several intraluminal stones visualized. GALLBLADDER: Surgically absent. PANCREAS: The visualized portions are within normal limits. RIGHT KIDNEY: No hydronephrosis, stone or mass. Mild prominence right collecting system. SPLEEN: No focal lesion. CONCLUSION: 1. Choledocholithiasis. 2. Dilated common bile duct and intrahepatic biliary ductal dilatation. 3. Cholecystectomy. 4. Mild prominence right collecting system but no significant hydronephrosis. Trevin Fink MD on September 16, 2016 at 10:39 Board Certified Radiologist. This report was verified electronically.
[2016-09-16] MEDS ORDERED: SODIUM CHLORIDE 0.9% FLUSH 5 ML FLUSH FLUSH PRN (11:00)
[2016-09-16] MEDS ORDERED: ACETAMINOPHEN 325 MG TAB PO PRN (11:00)
[2016-09-16] MEDS ORDERED: MAGNESIUM HYDROXIDE SUSP 30 ML CUP PO PRN (11:00)
[2016-09-16] MEDS ORDERED: BISACODYL 10 MG SUPP PR PRN (11:00)
[2016-09-16] MEDS ORDERED: ONDANSETRON HCL 4 MG/2 ML VIAL IVP PRN (11:00)
[2016-09-16] MEDS ORDERED: NALOXONE HCL 0.4 MG/ML AMP IV PRN (11:00)
[2016-09-16] MEDS ORDERED: SUCRALFATE 1 GM TAB PO PRN (11:15)
--- NOTE | 2016-09-16 11:34 | HHI.HP ---
HPI Service [facility] Primary Care Physician Bela Petersen MD Admission Diagnosis choledocholithiasis Chief Complaint: increasing abdominal pain Travel History International Travel<30 Days: No Contact w/Intl Traveler <30 Da: No Traveled to Known Affected Are: No History of Present Illness This is an 86-year-old female who presents to the emergency department having 2 years of intermittent epigastric abdominal pain. She reports that over the past week ever since she ate some greasy finish her pain has gotten a lot worse. She describes it as sharp in the upper abdomen, constant, worse with eating and making her not want to eat, associated with some nausea but no vomiting. She denies any fevers or chills. She was seen twice in the emergency department last week. On her second visit she had abnormal LFTs and was referred to Dr. Boswell. She has an appointment later today but her pain got so bad this morning and she feels very weak so she came back to the emergency department. Patient on lab work elevated LFT and on liver ultrasound dilated CBD and intrahepatic ductal dilation. Review of Systems Gastrointestinal: COMPLAINS OF: Abdominal pain Past Family Social History Past Medical History hyperlipidemia,hypertension,dm,GERD Past Surgical History teeth extraction Reported Medications Zofran Odt (Ondansetron Odt) 4 Mg Tab 4 Mg SL Q6HR PRN Omeprazole 40 Mg Cap 40 Mg PO DAILY 7 Days Carafate (Sucralfate) 1 Gm Tab 1 Gm PO QID PRN On empty stomach Reported Vitamin D-3 (Cholecalciferol) 2,000 Unit Tab 1 Tab PO BID Tresiba Flextouch Pen Inj (Insulin Degludec Inj) 300 unit/3 ML Pen 50 Units SQ DAILY Terazosin (Terazosin HCl) 2 Mg Cap 4 Mg PO BID Systane Opth Drops (Polyethylene Glycol-Propylene Glycol Opth Drp) 0.4-0.3% Soln 1-2 Drop EACH EYE PRN PRN Shaq-E Complete (S-Adenosylmethionine) 400 Mg Tab 400 Mg PO DAILY Rosuvastatin (Rosuvastatin Calcium) 40 Mg Tab 40 Mg PO DAILY Red Yeast Rice (Red Yeast Rice Extract) 600 Mg Tab 1 Cap PO BID Omeprazole 20 Mg Tab 20 Mg PO DAILY Novolog Inj (Insulin Aspart) 1,000 Unit/10 Ml Vial 15 Units SQ TIDAC Multi Complete (Multiple Vitamins W/ Minerals) 1 Cap Cap 1 Tab PO DAILY Lisinopril 20 Mg Tab 20 Mg PO DAILY Curcumax Pro ([employer] Natural Products) 1 Tab Tab 1 Tab PO DAILY Cholesterol Defense (Nutritional Supplements) 1 Tab Tab 1 Tab PO BID Chlorthalidone 100 Mg Tab 100 Mg PO DAILY Atenolol 100 Mg Tab 100 Mg PO DAILY Aspirin 81 Mg Chew 81 Mg CHEW DAILY Aloe Vera Juice Liq (Aloe Vera Liq) 99.8% Liqd 5 Ml PO BID Allergies: Coded Allergies: No Known Allergies (Verified , 09/16/16) Family History cardiac disease family Social History NS,ND Physical Exam Vital Signs Vital Signs Date Time Temp Pulse Resp B/P Pulse Ox O2 Delivery O2 Flow Rate FiO2 09/16/16 11:12 59 16 196/88 96 Room Air 09/16/16 10:09 82 18 162/68 98 Room Air 09/16/16 08:16 98.5 56 16 172/66 99 Physical Exam GENERAL: This is a well-nourished, well-developed patient, in no apparent distress. SKIN: No rashes, ecchymoses or lesions. Cool and dry. HEAD: Atraumatic. Normocephalic. No temporal or scalp tenderness. EYES: Pupils equal round and reactive. Extraocular motions intact. No scleral icterus. No injection or drainage. ENT: Nose without bleeding, purulent drainage or septal hematoma. Throat without erythema, tonsillar hypertrophy or exudate. Uvula midline. Airway patent. NECK: Trachea midline. No JVD or lymphadenopathy. Supple, nontender, no meningeal signs. CARDIOVASCULAR: Regular rate and rhythm without murmurs, gallops, or rubs. RESPIRATORY: Clear to auscultation. Breath sounds equal bilaterally. No wheezes , rales, or rhonchi. GASTROINTESTINAL: Abdomen soft, mild tenderness abdomen no rebound MUSCULOSKELETAL: Extremities without clubbing, cyanosis, or edema. No joint tenderness, effusion, or edema noted. No calf tenderness. Negative Homans sign bilaterally. NEUROLOGICAL: Awake and alert. Cranial nerves II through XII intact. Motor and sensory grossly within normal limits. Five out of 5 muscle strength in all muscle groups. Normal speech. Laboratory Laboratory Tests Test 09/16/16 08:44 White Blood Count 6.8 Red Blood Count 4.67 Hemoglobin 13.0 Hematocrit 38.7 Mean Corpuscular Volume 82.8 Mean Corpuscular Hemoglobin 27.8 Mean Corpuscular Hemoglobin 33.6 Concent Red Cell Distribution Width 14.4 Platelet Count 142 Mean Platelet Volume 8.2 Neutrophils (%) (Auto) 76.7 Lymphocytes (%) (Auto) 11.0 Monocytes (%) (Auto) 10.6 Eosinophils (%) (Auto) 1.2 Basophils (%) (Auto) 0.5 Neutrophils # (Auto) 5.3 Lymphocytes # (Auto) 0.7 Monocytes # (Auto) 0.7 Eosinophils # (Auto) 0.1 Basophils # (Auto) 0.0 CBC Comment DIFF FINAL Differential Comment Sodium Level 138 Potassium Level 3.5 Chloride Level 102 Carbon Dioxide Level 26.0 Anion Gap 10 Blood Urea Nitrogen 26 Creatinine 1.30 Estimat Glomerular Filtration 39 Rate Random Glucose 196 Calcium Level 9.1 Total Bilirubin 2.1 Aspartate Amino Transf 231 (AST/SGOT) Alanine Aminotransferase 179 (ALT/SGPT) Alkaline Phosphatase 196 Total Protein 7.4 Albumin 3.5 Lipase 204 Acetaminophen Level LESS THAN 2.0 Result Diagram: 09/16/16 0844 09/16/16 0844 Imaging Last 24 hours Impressions Liver Ultrasound 09/16/16 0000 Signed Impressions: Service Date/Time: Friday, September 16, 2016 09:51 - CONCLUSION: 1. Choledocholithiasis. 2. Dilated common bile duct and intrahepatic biliary ductal dilatation. 3. Cholecystectomy. 4. Mild prominence right collecting system but no significant hydronephrosis. Trevin Fink MD Assessment and Plan Problem List: (1) Choledocholithiasis with obstruction Status: Acute Plan: pain meds GI consult (2) Abdominal pain Status: Acute Plan: as above (3) Hypertension Status: Chronic Plan: continue home meds (4) Diabetes Status: Chronic Plan: sliding scale Assessment and Plan further plan as case develops hold statin Code Status full Discussed Condition With patient Physician Certification 2 Midnight Certification Type: Admission for Inpatient Services Order for Inpatient Services The services are ordered in accordance with Medicare regulations or non- Medicare payer requirements, as applicable. In the case of services not specified as inpatient-only, they are appropriately provided as inpatient services in accordance with the 2-midnight benchmark. Estimated LOS (days): 3 3 days is the estimated time the patient will need to remain in the hospital, assuming treatment plan goals are met and no additional complications. Post-Hospital Plan: Not yet determined Problem Qualifiers (1) Choledocholithiasis with obstruction: Qualified Code: K80.51 - Calculus of bile duct without cholecystitis with obstruction Michael Delong MD Sep 16, 2016 11:33
[2016-09-16] MEDS ORDERED: GLUCAGON 1 MG/ML VIAL OTHER PRN (11:45)
[2016-09-16] MEDS ORDERED: DEXTROSE 50% IN WATER 50 ML VIAL(D50) IV PRN (11:45)
--- NOTE | 2016-09-16 11:55 | RADHPO ---
EXAM DATE/TIME: 09/16/2016 11:20 [facility] COMPARISON: CHEST SINGLE AP, September 09, 2016, 12:30. INDICATIONS : Short of breath and weakness MEDICAL HISTORY : Hypertension. Hypercholesterolemia. SURGICAL HISTORY : None. ENCOUNTER: Initial ACUITY: 2 days PAIN SCORE: 2/10 LOCATION: Bilateral chest FINDINGS: A single view of the chest demonstrates the lungs to be symmetrically aerated without evidence of mas s, infiltrate or effusion. The cardiomediastinal contours are unremarkable. Osseous structures are intact. CONCLUSION: No acute disease. Trevin Fink MD on September 16, 2016 at 11:52 Board Certified Radiologist. This report was verified electronically.
[2016-09-16] MEDS ORDERED: ENALAPRILAT 1.25 MG/ML VIAL IV PUSH PRN (12:15)
[2016-09-16] MEDS ORDERED: ARTIFICIAL TEARS OPTH SOLN 15 ML BTL EACH EYE PRN (12:15)
[2016-09-16] MEDS: INSULIN ASPART SUPPLEMENTAL SCALE SQ SCH ×2 (16:00→20:05)
[2016-09-16] MEDS: TERAZOSIN HCL 1 MG CAP PO SCH (19:59)
[2016-09-16] MEDS: CHOLECALCIFEROL (VIT D3) 1000 UNIT TAB PO SCH (20:00)
[2016-09-16] MEDS: LISINOPRIL 20 MG TAB PO SCH (20:01)
[2016-09-16] MEDS: SODIUM CHLORIDE 0.9% FLUSH 5 ML FLUSH FLUSH SCH (20:01)
[2016-09-17] VITALS: BP 140/60; PULSE 69; RESP 18; TEMP 99.8; O2SAT 95
[2016-09-17] MEDS: hydrOXYzine HCL 10 MG TAB PO PRN ×2 (03:40→21:10)
[2016-09-17 04:00] VITALS: BP 158/69; PULSE 63; RESP 18; TEMP 98.9; O2SAT 96
[2016-09-17] MEDS: INSULIN ASPART SUPPLEMENTAL SCALE SQ SCH ×4 (05:47→21:00)
[2016-09-17 07:47] LABS: AUTOMATED NEUTROPHIL # 3.1 TH/MM3 (1.8-7.7); BASOPHIL % 0.3 % (0.0-2.0); EOSINOPHIL # 0.1 TH/MM3 (0-0.4); EOSINOPHIL % 1.7 % (0.0-4.0); HEMATOCRIT 37.5 % (35.0-46.0); HEMO FLAGS DIFF FINAL; LYMPH % 24.1 % (9.0-44.0); LYMPHOCYTE # 1.2 TH/MM3 (1.0-4.8); MEAN CORPUSCULAR HEMOGLOBIN 27.6 PG (27.0-34.0); MEAN CORPUSCULAR HGB CONC 33.3 % (32.0-36.0); MONO % 12.7 % (0.0-8.0); NEUT % 61.2 % (16.0-70.0); PLATELET COUNT 140 TH/MM3 (150-450); RED BLOOD COUNT 4.52 MIL/MM3 (4.00-5.30); RED CELL DISTRIBUTION WIDTH 15.5 % (11.6-17.2)
[2016-09-17 07:50] VITALS: BP 174/72; PULSE 61; RESP 20; TEMP 98.7; O2SAT 96
[2016-09-17 08:01] LABS: BICARBONATE 27.3 MEQ/L (21.0-32.0); MAGNESIUM 1.7 MG/DL (1.5-2.5); POTASSIUM 3.4 MEQ/L (3.5-5.1); TOTAL BILIRUBIN ADULT 5.4 MG/DL (0.2-1.0)
[2016-09-17] MEDS: ASPIRIN 81 MG CHEW TAB CHEW SCH (09:00)
[2016-09-17] MEDS: CHLORTHALIDONE 50 MG TAB PO SCH (09:48)
[2016-09-17] MEDS: LISINOPRIL 20 MG TAB PO SCH ×2 (09:48→20:56)
[2016-09-17] MEDS: TERAZOSIN HCL 1 MG CAP PO SCH ×2 (09:48→20:56)
[2016-09-17] MEDS: ATENOLOL 100 MG TAB PO SCH (09:49)
[2016-09-17] MEDS: PANTOPRAZOLE SOD 20 MG DELAYED RELEASE TAB PO SCH (09:49)
[2016-09-17] MEDS: SODIUM CHLORIDE 0.9% FLUSH 5 ML FLUSH FLUSH SCH ×2 (09:49→20:56)
[2016-09-17] MEDS: CHOLECALCIFEROL (VIT D3) 1000 UNIT TAB PO SCH ×2 (09:49→20:56)
[2016-09-17 11:50] VITALS: BP 150/65; PULSE 54; RESP 20; TEMP 98.2; O2SAT 95
[2016-09-17] MEDS ORDERED: SUGAMMADEX SODIUM 200 MG/2 ML VIAL IV PUSH ONE ×2 (12:00)
[2016-09-17] MEDS ORDERED: ePHEDrine/NS 25 MG/5 ML SYR IV ONE (12:00)
[2016-09-17] MEDS ORDERED: PHENYLEPH/NS 1000 MCG/10 ML SYR IV ONE (12:00)
[2016-09-17] MEDS ORDERED: ONDANSETRON HCL 4 MG/2 ML VIAL IV PUSH ONE (12:00)
--- NOTE | 2016-09-17 13:52 | PD.CONS ---
HPI History of Present Illness This is a 86 year old female who came to the emergency room for evaluation of abdominal pain. She reports that she has had intermittent abdominal pain for the past 2-3 years. She underwent a cholecystectomy in 2013 for acute calculus cholecystitis. She reports that since that time she has continued to have intermittent attacks where she'll have epigastric pain that sometimes radiates up to her chest and then eventually subsides on its own. She reports that she was seen in the ER for this last week and discharged home with Carafate. She reports her symptoms did improve some but she started having significant epigastric discomfort yesterday. She describes this as a severe burning pain in her epigastric area. Occasionally this radiates to her chest but she is not currently having any radiation at this time. She denies any associated nausea, vomiting, diarrhea, melena, or hematochezia. She does have some mild bloating. She reports that her symptoms are aggravated by by mouth intake. She is feeling better today as far as her pain is concerned. However she reports that she is itching more today and that her urine is dark. (Margaret Lin ) PFSH Past Medical History Hyperlipidemia Cholelithiasis Hypertension Diabetes GERD Past Surgical History Cholecystectomy Teeth extraction (Margaret Lin) Coded Allergies: No Known Allergies (Verified , 09/16/16) Medications Allergies Coded Allergies Type Severity Reaction Last Updated Verified No Known Allergies 09/16/16 Yes Active Scripts Medications Dose Route/Sig Days Date Category Dose Instructions Zofran Odt (Ondansetron Odt) 4 Mg Tab 4 Mg SL Q6HR PRN 09/10/16 Rx Carafate (Sucralfate) 1 Gm Tab 1 Gm PO QID PRN 09/09/16 Rx On empty stomach Vitamin D-3 (Cholecalciferol) 2,000 Unit Tab 1 Tab PO BID 09/09/16 Reported Tresiba Flextouch Pen Inj (Insulin Degludec Inj) 300 unit/3 ML Pen 50 Units SQ DAILY 09/09/16 Reported Terazosin (Terazosin HCl) 2 Mg Cap 4 Mg PO BID 09/09/16 Reported Systane Opth Drops (Polyethylene Glycol-Propylene Glycol Opth Drp) 0.4-0.3% Soln 1-2 Drop EACH EYE PRN PRN 09/09/16 Reported Shaq-E Complete (S-Adenosylmethionine) 400 Mg Tab 400 Mg PO DAILY 09/09/16 Reported Rosuvastatin (Rosuvastatin Calcium) 40 Mg Tab 40 Mg PO DAILY 09/09/16 Reported Red Yeast Rice (Red Yeast Rice Extract) 600 Mg Tab 1 Cap PO BID 09/09/16 Reported Omeprazole 20 Mg Tab 20 Mg PO DAILY 09/09/16 Reported Novolog Inj (Insulin Aspart) 1,000 Unit/10 Ml Vial 15 Units SQ TIDAC 09/09/16 Reported Multi Complete (Multiple Vitamins W/ Minerals) 1 Cap Cap 1 Tab PO DAILY 09/09/16 Reported Lisinopril 20 Mg Tab 20 Mg PO BID 09/09/16 Reported Curcumax Pro ([employer] Natural Products) 1 Tab Tab 1 Tab PO DAILY 09/09/16 Reported Cholesterol Defense (Nutritional Supplements) 1 Tab Tab 1 Tab PO BID 09/09/16 Reported Chlorthalidone 100 Mg Tab 100 Mg PO DAILY 09/09/16 Reported Atenolol 100 Mg Tab 100 Mg PO DAILY 09/09/16 Reported Aspirin 81 Mg Chew 81 Mg CHEW DAILY 09/09/16 Reported Aloe Vera Juice Liq (Aloe Vera Liq) 99.8% Liqd 5 Ml PO BID 09/09/16 Reported Family History States mother from a heart attack. Father from stomach issues, although she is not sure of the details. Social History Denies any tobacco or alcohol use (Margaret Lin) Review of Systems Constitutional: COMPLAINS OF: Fatigue, Fever, DENIES: Weight loss, Chills Respiratory: DENIES: Cough Cardiovascular: DENIES: Chest pain Gastrointestinal: COMPLAINS OF: Abdominal pain, Heartburn, DENIES: Black stools, Bloody stools, Constipation, Diarrhea, Nausea, Vomiting, Swelling of Abdomen, Hematemesis Musculoskeletal: DENIES: Joint pain, Back pain Integumentary: COMPLAINS OF: Pruritus, Jaundice Hematologic/lymphatic: DENIES: Bruising Neurologic: DENIES: Headache Psychiatric: DENIES: Confusion (Margaret Lin) GI Exam Vitals I&O Vital Signs Date Time Temp Pulse Resp B/P Pulse Ox O2 Delivery O2 Flow Rate FiO2 09/17/16 11:50 98.2 54 20 150/65 95 09/17/16 07:50 98.7 61 20 174/72 96 09/17/16 04:00 98.9 63 18 158/69 96 09/17/16 00:00 99.8 69 18 140/60 95 09/16/16 20:00 100.0 62 18 162/70 95 09/16/16 18:33 67 18 158/64 98 09/16/16 16:28 58 18 156/62 98 Room Air 09/16/16 14:56 59 18 190/85 98 Room Air I/O 09/16/16 09/16/16 09/16/16 09/17/16 09/17/16 09/17/16 07:00 15:00 23:00 07:00 15:00 23:00 Intake Total 500 ml Balance 500 ml Intake IV Total 500 ml # Voids 1 0 Imaging Last Impressions Chest X-Ray 09/16/16 1057 Signed Impressions: Service Date/Time: Friday, September 16, 2016 11:20 - CONCLUSION: No acute disease. Trevin Fink MD Liver Ultrasound 09/16/16 0000 Signed Impressions: Service Date/Time: Friday, September 16, 2016 09:51 - CONCLUSION: 1. Choledocholithiasis. 2. Dilated common bile duct and intrahepatic biliary ductal dilatation. 3. Cholecystectomy. 4. Mild prominence right collecting system but no significant hydronephrosis. Trevin Fink MD Laboratory Test 09/17/16 06:31 White Blood Count 5.0 TH/MM3 Red Blood Count 4.52 MIL/MM3 Hemoglobin 12.5 GM/DL Hematocrit 37.5 % Mean Corpuscular Volume 83.0 FL Mean Corpuscular Hemoglobin 27.6 PG Mean Corpuscular Hemoglobin 33.3 % Concent Red Cell Distribution Width 15.5 % Platelet Count 140 TH/MM3 Mean Platelet Volume 8.5 FL Neutrophils (%) (Auto) 61.2 % Lymphocytes (%) (Auto) 24.1 % Monocytes (%) (Auto) 12.7 % Eosinophils (%) (Auto) 1.7 % Basophils (%) (Auto) 0.3 % Neutrophils # (Auto) 3.1 TH/MM3 Lymphocytes # (Auto) 1.2 TH/MM3 Monocytes # (Auto) 0.6 TH/MM3 Eosinophils # (Auto) 0.1 TH/MM3 Basophils # (Auto) 0.0 TH/MM3 CBC Comment DIFF FINAL Differential Comment Sodium Level 139 MEQ/L Potassium Level 3.4 MEQ/L Chloride Level 102 MEQ/L Carbon Dioxide Level 27.3 MEQ/L Anion Gap 10 MEQ/L Blood Urea Nitrogen 20 MG/DL Creatinine 1.42 MG/DL Estimat Glomerular Filtration 35 ML/MIN Rate Random Glucose 94 MG/DL Calcium Level 9.0 MG/DL Magnesium Level 1.7 MG/DL Total Bilirubin 5.4 MG/DL Direct Bilirubin 4.4 MG/DL Indirect Bilirubin 1.0 MG/DL Aspartate Amino Transf 117 U/L (AST/SGOT) Alanine Aminotransferase 147 U/L (ALT/SGPT) Alkaline Phosphatase 230 U/L Total Protein 7.0 GM/DL Albumin 3.3 GM/DL Physical Examination HEENT: Normocephalic; atraumatic; no jaundice. CHEST: CTA. CARDIAC: RRR ABDOMEN: Soft, nondistended, mild epigastric tenderness; no hepatosplenomegaly ; bowel sounds are present in all four quadrants. EXTREMITIES: No clubbing, cyanosis, or edema. SKIN: Normal; no rash; + jaundice REMOTE SENSING SPECIALIST: No focal deficits; alert and oriented times three. (Margaret Lin) Assessment and Plan Plan ASSESSMENT: - Choledocholithiasis. S/P Cholecystectomy 2013. Pt reports that she has continued to have intermittent abdominal pain, described as a burning epigastric pain that sometimes radiates to her chest. Her abdominal pain has improved today, although she is having more itching and reports her urine is dark. Liver Ultrasound (09/16/16)----> 1. Choledocholithiasis. 2. Dilated common bile duct and intrahepatic biliary ductal dilatation. 3. Cholecystectomy. 4. Mild prominence right collecting system but no significant hydronephrosis. T. Bili went up to 5.4 today, AST 117, ALT 147, Alk Phosph 230. WBC okay, although had low grade fever yesterday. NPO. Plan for ERCP with possible sphincterotomy, possible stent placement today. - Abdominal pain secondary to above. - Elevated LFTs secondary to above - HTN, DM, Hyperlipidemia per primary PLAN: - Plan for ERCP with possible sphincterotomy, possible stent placement - Obtain consents - NPO - PPI - Carafate - IVF - CBC, CMP in am - Supportive care - Further recommendations to follow based on results of above - Pt seen and examined by Dr. Reveles and myself and this note is written on his behalf (Margaret Lin) Physician Comments Patient was seen and examined Agree with above Continue with current supportive care Monitor labs We will proceed with ERCP next (Dipak Reveles MD) Margaret Lin Sep 17, 2016 13:51 Dipak Reveles MD Sep 17, 2016 17:44
[2016-09-17 15:00] VITALS: BP 171/72; PULSE 55; RESP 20; TEMP 98.3; O2SAT 96
--- NOTE | 2016-09-17 15:58 | HHI.PR ---
Subjective Remarks Pt down for ERCP Objective Vitals Vital Signs Date Time Temp Pulse Resp B/P Pulse Ox O2 Delivery O2 Flow Rate FiO2 09/17/16 11:50 98.2 54 20 150/65 95 09/17/16 07:50 98.7 61 20 174/72 96 09/17/16 04:00 98.9 63 18 158/69 96 09/17/16 00:00 99.8 69 18 140/60 95 09/16/16 20:00 100.0 62 18 162/70 95 09/16/16 18:33 67 18 158/64 98 09/16/16 16:28 58 18 156/62 98 Room Air 09/16/16 09/16/16 09/17/16 15:00 23:00 07:00 Intake Total 500 ml Balance 500 ml Intake IV Total 500 ml # Voids 1 0 Result Diagram: 09/17/16 0631 09/17/16 0631 Other Results Laboratory Tests Test 09/16/16 09/17/16 08:44 06:31 White Blood Count 6.8 TH/MM3 5.0 TH/MM3 Red Blood Count 4.67 MIL/MM3 4.52 MIL/MM3 Hemoglobin 13.0 GM/DL 12.5 GM/DL Hematocrit 38.7 % 37.5 % Mean Corpuscular Volume 82.8 FL 83.0 FL Mean Corpuscular Hemoglobin 27.8 PG 27.6 PG Mean Corpuscular Hemoglobin 33.6 % 33.3 % Concent Red Cell Distribution Width 14.4 % 15.5 % Platelet Count 142 TH/MM3 140 TH/MM3 Mean Platelet Volume 8.2 FL 8.5 FL Neutrophils (%) (Auto) 76.7 % 61.2 % Lymphocytes (%) (Auto) 11.0 % 24.1 % Monocytes (%) (Auto) 10.6 % 12.7 % Eosinophils (%) (Auto) 1.2 % 1.7 % Basophils (%) (Auto) 0.5 % 0.3 % Neutrophils # (Auto) 5.3 TH/MM3 3.1 TH/MM3 Lymphocytes # (Auto) 0.7 TH/MM3 1.2 TH/MM3 Monocytes # (Auto) 0.7 TH/MM3 0.6 TH/MM3 Eosinophils # (Auto) 0.1 TH/MM3 0.1 TH/MM3 Basophils # (Auto) 0.0 TH/MM3 0.0 TH/MM3 CBC Comment DIFF FINAL DIFF FINAL Differential Comment Sodium Level 138 MEQ/L 139 MEQ/L Potassium Level 3.5 MEQ/L 3.4 MEQ/L Chloride Level 102 MEQ/L 102 MEQ/L Carbon Dioxide Level 26.0 MEQ/L 27.3 MEQ/L Anion Gap 10 MEQ/L 10 MEQ/L Blood Urea Nitrogen 26 MG/DL 20 MG/DL Creatinine 1.30 MG/DL 1.42 MG/DL Estimat Glomerular Filtration 39 ML/MIN 35 ML/MIN Rate Random Glucose 196 MG/DL 94 MG/DL Calcium Level 9.1 MG/DL 9.0 MG/DL Total Bilirubin 2.1 MG/DL 5.4 MG/DL Aspartate Amino Transf 231 U/L 117 U/L (AST/SGOT) Alanine Aminotransferase 179 U/L 147 U/L (ALT/SGPT) Alkaline Phosphatase 196 U/L 230 U/L Total Protein 7.4 GM/DL 7.0 GM/DL Albumin 3.5 GM/DL 3.3 GM/DL Lipase 204 U/L Acetaminophen Level LESS THAN 2.0 MCG/ML Magnesium Level 1.7 MG/DL Direct Bilirubin 4.4 MG/DL Indirect Bilirubin 1.0 MG/DL Imaging Last 24 hours Impressions Liver Ultrasound 09/16/16 0000 Signed Impressions: Service Date/Time: Friday, September 16, 2016 09:51 - CONCLUSION: 1. Choledocholithiasis. 2. Dilated common bile duct and intrahepatic biliary ductal dilatation. 3. Cholecystectomy. 4. Mild prominence right collecting system but no significant hydronephrosis. Trevin Fink MD A/P Problem List: (1) Choledocholithiasis with obstruction Status: Acute Plan: - Pt admitted with abdominal pain and elevated LFTs. - Liver Ultrasound (09/16/16)----> Choledocholithiasis with dilated common bile duct and intrahepatic biliary ductal dilatation, cholecystectomy, mild prominence right collecting system but no significant hydronephrosis. - T. Bili went up to 5.4 today, AST 117, ALT 147, Alk Phosph 230. - WBC is WNL but she has had low grade fever - Pt is NPO. - IVF - GI is following. - Pt is planned for ERCP with possible sphincterotomy, possible stent placement today. - Monitor Labs (2) Abdominal pain Status: Acute Plan: - As above (3) Hypertension Status: Chronic Plan: - Home meds continued but BP elevated today likely secondary to pain - Vasotec PRN (4) Diabetes Status: Chronic Plan: - NovoLog sliding scale - Accu checks Assessment and Plan Patient examined. Assessment and plan formulated with Carmelina Mary PA-C. I agree with the above. Problem Qualifiers (1) Choledocholithiasis with obstruction: Qualified Code: K80.51 - Calculus of bile duct without cholecystitis with obstruction (2) Diabetes: Carmelina Mary Sep 17, 2016 15:58 Sudarshan Pablo DO Sep 20, 2016 17:39
[2016-09-17] MEDS ORDERED: MIDAZOLAM HCL 2 MG/2 ML VIAL ONE (16:30)
[2016-09-17] MEDS ORDERED: IOHEXOL 350 MG/ML 100 ML BTL (for RAD DIAG) OTHER ONE (16:49)
[2016-09-17] MEDS ORDERED: DO NOT ADM ANY ANTICOAGULANT DRUGS XX PRN (17:47)
--- NOTE | 2016-09-17 17:47 | PD.PROCEDR ---
GI Procedure REFERRING PHYSICIAN Dr. Pablo PROCEDURE PERFORMED ERCP with sphincterotomy and balloon extraction INDICATION FOR PROCEDURE Choledocholithiasis PROCEDURE: The procedure, risks and benefits were discussed with Ms. Beckett and informed consent was obtained. Anesthesia sedated her with Diprivan. She was placed in the left lateral decubitus position. ERCP: Patient was placed in a prone position. The Pentax videoscope was introduced through the oropharynx and advanced to the second portion of the duodenum where the ampula was identified. FINDINGS: The ampulla was identified and this appeared to be unremarkable at the edge of a duodenal diverticulum and initial cannulation was that of the pancreatic duct which appeared to be unremarkable limited injection was performed then we were able to obtain cannulation of the common bile duct there were multiple filling defects noted in the common bile duct which was somewhat dilated the intrahepatics were unremarkable there was no filling of the gallbladder and a generous sphincterotomy was performed then using the well millimeter balloon we were able to extract multiple stones finally we were able to obtain an obstructive cholangiogram which showed clear filling of the common bile duct which was also lavaged with saline and finally the procedure was terminated ESTIMATED BLOOD LOSS: None SPECIMENS REMOVED: None COMPLICATIONS: None IMPRESSION: Choledocholithiasis Small duodenal diverticulum PLAN: Supportive care Monitor labs Hydration Labs appear to be improving tomorrow patient may be discharged from a GI standpoint follow-up as an outpatient Indomethacin 50 mg 2 suppositories were ordered to be given immediately Dipak Reveles MD Sep 17, 2016 17:47
[2016-09-17] MEDS ORDERED: fentaNYL CITRATE 250 MCG/5 ML AMP ONE (17:49)
--- NOTE | 2016-09-17 17:53 | RADRPT ---
EXAM DATE/TIME: 09/17/2016 17:15 [facility] COMPARISON: US ABDOMEN - LIVER, September 16, 2016, 9:51. INDICATIONS : Obstruction FLUORO TIME: 5.36 minutes IMAGE COUNT: 2 CONTRAST: Instilled by Ordering Physician MEDICAL HISTORY : Hypertension. Gastroesophageal reflux disease. Cardiovascular disease. Hypercholesterol. Diabeti c. SURGICAL HISTORY : Cholecystectomy. ENCOUNTER: Initial ACUITY: 1 week PAIN SCORE: Non-responsive. LOCATION: Abdomen FINDINGS: An ERCP was performed by the ordering physician. The images demonstrate mild dilatation of the common bile duct. No stones are identified following ba lloon extraction. CONCLUSION: ERCP as above. Cameron Almaguer MD on September 17, 2016 at 17:51 Board Certified Radiologist. This report was verified electronically.
[2016-09-17] MEDS ORDERED: INDOMETHACIN 50 MG SUPP PR ONE (18:00)
[2016-09-17] MEDS ORDERED: PROPOFOL 200 MG/20 ML AMP IV ONE (18:11)
[2016-09-17 20:00] VITALS: BP 183/88; PULSE 55; RESP 18; TEMP 96.3; O2SAT 98
[2016-09-18] VITALS (8 sets, daily range): BP systolic 130–159; BP diastolic 53–68; PULSE 58–70; RESP 15–19; TEMP 96.5–98.3; O2SAT 94–98
[2016-09-18] MEDS ORDERED: MORPHINE SULFATE 4 MG/ML INJ IV PUSH PRN
--- NOTE | 2016-09-18 00:05 | EKG ---
Date Performed: 09/16/2016 Time Performed: 11:07:12 PTAGE: 86 years EKG: Sinus bradycardia Left axis deviation Left bundle branch block Abnormal ECG PREVIOUS TRACING : 09/10/2016 09.39 Compared to prior tracing no significant change DOCTOR: Robbie Ojeda Interpretating Date/Time 09/18/2016 00:03:54
[2016-09-18] MEDS: hydrOXYzine HCL 10 MG TAB PO PRN ×3 (05:10→21:37)
[2016-09-18 07:13] LABS: AUTOMATED NEUTROPHIL # 5.4 TH/MM3 (1.8-7.7); BASOPHIL % 0.2 % (0.0-2.0); EOSINOPHIL % 0.7 % (0.0-4.0); HEMATOCRIT 34.9 % (35.0-46.0); HEMO FLAGS DIFF FINAL; LYMPH % 12.1 % (9.0-44.0); LYMPHOCYTE # 0.8 TH/MM3 (1.0-4.8); MEAN CELL VOLUME 83.4 FL (80.0-100.0); MEAN CORPUSCULAR HGB CONC 33.6 % (32.0-36.0); MONO % 9.7 % (0.0-8.0); NEUT % 77.3 % (16.0-70.0); PLATELET COUNT 134 TH/MM3 (150-450); RED BLOOD COUNT 4.19 MIL/MM3 (4.00-5.30); RED CELL DISTRIBUTION WIDTH 15.7 % (11.6-17.2); WHITE BLOOD COUNT 6.9 TH/MM3 (4.0-11.0)
[2016-09-18] MEDS: INSULIN ASPART SUPPLEMENTAL SCALE SQ SCH ×4 (07:30→19:36)
[2016-09-18 07:44] LABS: ALKALINE PHOSPHATASE 211 U/L (45-117); ALT (GPT) 104 U/L (10-53); ANION GAP 12 MEQ/L (5-15); AST (GOT) 74 U/L (15-37); BICARBONATE 25.6 MEQ/L (21.0-32.0); BLOOD UREA NITROGEN 22 MG/DL (7-18); CHLORIDE 100 MEQ/L (98-107); GLOMERULAR FILTRATION RATE 25 ML/MIN (>89); POTASSIUM 3.6 MEQ/L (3.5-5.1); SODIUM (NA) 138 MEQ/L (136-145); TOTAL BILIRUBIN ADULT 5.9 MG/DL (0.2-1.0)
[2016-09-18] MEDS: SODIUM CHLORIDE 0.9% FLUSH 5 ML FLUSH FLUSH SCH ×2 (08:14→19:29)
[2016-09-18] MEDS: TERAZOSIN HCL 1 MG CAP PO SCH ×2 (08:15→19:28)
[2016-09-18] MEDS: ASPIRIN 81 MG CHEW TAB CHEW SCH (08:16)
[2016-09-18] MEDS: CHLORTHALIDONE 50 MG TAB PO SCH (08:17)
[2016-09-18] MEDS: CHOLECALCIFEROL (VIT D3) 1000 UNIT TAB PO SCH ×2 (08:18→19:27)
[2016-09-18] MEDS: ATENOLOL 100 MG TAB PO SCH (08:18)
[2016-09-18] MEDS: LISINOPRIL 20 MG TAB PO SCH ×2 (08:18→19:32)
[2016-09-18] MEDS: PANTOPRAZOLE SOD 20 MG DELAYED RELEASE TAB PO SCH (08:18)
--- NOTE | 2016-09-18 14:48 | HHI.PR ---
Subjective Remarks Pt is s/p ERCP with sphincterotomy and stone extraction on 09/17/16 Pt tolerating advanced diet today Pts main complaint is that of itching all over. Afebrile. Objective Vitals Vital Signs Date Time Temp Pulse Resp B/P Pulse Ox O2 Delivery O2 Flow Rate FiO2 09/18/16 12:00 98.2 58 18 140/63 95 09/18/16 09:56 96 21 09/18/16 08:00 96.5 59 18 141/64 95 09/18/16 04:00 96.9 70 19 130/53 94 09/18/16 01:20 18 09/18/16 00:00 96.8 59 19 159/67 95 09/17/16 20:00 96.3 55 18 183/88 98 09/17/16 18:20 65 15 154/81 95 Nasal Cannula 2 09/17/16 18:15 97.7 66 14 150/72 95 Nasal Cannula 2 09/17/16 18:00 68 13 162/73 94 Nasal Cannula 2 09/17/16 17:45 98.2 93 8 167/78 97 Simple Mask 8 09/17/16 15:00 98.3 55 20 171/72 96 09/17/16 09/17/16 09/18/16 15:00 23:00 07:00 Intake Total 0 ml 570 ml 480 ml Output Total 300 ml 400 ml 500 ml Balance -300 ml 170 ml -20 ml Intake Oral 0 ml 120 ml 480 ml IV Total 25 ml Other 425 ml Output Urine Total 300 ml 400 ml 500 ml Estimated Blood Loss 0 ml # Voids 2 0 # Bowel Movements 0 1 0 Result Diagram: 09/18/16 0640 09/18/16 0640 Other Results Laboratory Tests Test 09/17/16 09/18/16 06:31 06:40 White Blood Count 5.0 TH/MM3 6.9 TH/MM3 Red Blood Count 4.52 MIL/MM3 4.19 MIL/MM3 Hemoglobin 12.5 GM/DL 11.7 GM/DL Hematocrit 37.5 % 34.9 % Mean Corpuscular Volume 83.0 FL 83.4 FL Mean Corpuscular Hemoglobin 27.6 PG 28.0 PG Mean Corpuscular Hemoglobin 33.3 % 33.6 % Concent Red Cell Distribution Width 15.5 % 15.7 % Platelet Count 140 TH/MM3 134 TH/MM3 Mean Platelet Volume 8.5 FL 8.5 FL Neutrophils (%) (Auto) 61.2 % 77.3 % Lymphocytes (%) (Auto) 24.1 % 12.1 % Monocytes (%) (Auto) 12.7 % 9.7 % Eosinophils (%) (Auto) 1.7 % 0.7 % Basophils (%) (Auto) 0.3 % 0.2 % Neutrophils # (Auto) 3.1 TH/MM3 5.4 TH/MM3 Lymphocytes # (Auto) 1.2 TH/MM3 0.8 TH/MM3 Monocytes # (Auto) 0.6 TH/MM3 0.7 TH/MM3 Eosinophils # (Auto) 0.1 TH/MM3 0.0 TH/MM3 Basophils # (Auto) 0.0 TH/MM3 0.0 TH/MM3 CBC Comment DIFF FINAL DIFF FINAL Differential Comment Sodium Level 139 MEQ/L 138 MEQ/L Potassium Level 3.4 MEQ/L 3.6 MEQ/L Chloride Level 102 MEQ/L 100 MEQ/L Carbon Dioxide Level 27.3 MEQ/L 25.6 MEQ/L Anion Gap 10 MEQ/L 12 MEQ/L Blood Urea Nitrogen 20 MG/DL 22 MG/DL Creatinine 1.42 MG/DL 1.92 MG/DL Estimat Glomerular Filtration 35 ML/MIN 25 ML/MIN Rate Random Glucose 94 MG/DL 178 MG/DL Calcium Level 9.0 MG/DL 8.8 MG/DL Magnesium Level 1.7 MG/DL Total Bilirubin 5.4 MG/DL 5.9 MG/DL Direct Bilirubin 4.4 MG/DL Indirect Bilirubin 1.0 MG/DL Aspartate Amino Transf 117 U/L 74 U/L (AST/SGOT) Alanine Aminotransferase 147 U/L 104 U/L (ALT/SGPT) Alkaline Phosphatase 230 U/L 211 U/L Total Protein 7.0 GM/DL 6.5 GM/DL Albumin 3.3 GM/DL 3.0 GM/DL Imaging Last 24 hours Impressions Liver Ultrasound 09/16/16 0000 Signed Impressions: Service Date/Time: Friday, September 16, 2016 09:51 - CONCLUSION: 1. Choledocholithiasis. 2. Dilated common bile duct and intrahepatic biliary ductal dilatation. 3. Cholecystectomy. 4. Mild prominence right collecting system but no significant hydronephrosis. Trevin Fink MD Objective Remarks General: NAD, AAOx3. Jaundice. Chest: CTA bilateral Cardiac: Regular Abd: +BS, soft ND/NT Ext: No edema A/P Problem List: (1) Choledocholithiasis with obstruction Status: Acute Plan: - Pt admitted with abdominal pain and elevated LFTs. - Liver Ultrasound (09/16/16)----> Choledocholithiasis with dilated common bile duct and intrahepatic biliary ductal dilatation, cholecystectomy, mild prominence right collecting system but no significant hydronephrosis. - WBC is WNL but she has had low grade fever on 09/16 - GI is following. - Pt underwent ERCP with sphincterotomy and balloon extraction on 09/17/16 which noted choledocholithiasis and small duodenal diverticulum - Repeat labs: T. Bili went up to 5.9 today, AST 74, ALT 104, Alk Phosph 211. - Monitor Labs - Atarax PRN for itching (2) Abdominal pain Status: Acute Plan: - As above (3) Hypertension Status: Chronic Plan: - Improving - Home meds continued but BP elevated today likely secondary to pain - Vasotec PRN (4) Diabetes Status: Chronic Plan: - NovoLog sliding scale - Accu checks Assessment and Plan Patient examined. Assessment and plan formulated with Carmelina Mary PA-C. I agree with the above. Problem Qualifiers (1) Choledocholithiasis with obstruction: Qualified Code: K80.51 - Calculus of bile duct without cholecystitis with obstruction (2) Diabetes: Carmelina Mary Sep 18, 2016 14:48 Sudarshan Pablo DO Sep 20, 2016 17:40
--- NOTE | 2016-09-18 18:43 | HHI.GIFU ---
Subjective Remarks Patient is resting in bed watching TV, denies nausea, vomiting or abdomen pain. (Lor Landis) Objective Vitals I&O Vital Signs Date Time Temp Pulse Resp B/P Pulse Ox O2 Delivery O2 Flow Rate FiO2 09/18/16 16:00 98.0 59 18 152/66 96 09/18/16 12:00 98.2 58 18 140/63 95 09/18/16 09:56 96 21 09/18/16 08:00 96.5 59 18 141/64 95 09/18/16 04:00 96.9 70 19 130/53 94 09/18/16 01:20 18 09/18/16 00:00 96.8 59 19 159/67 95 09/17/16 20:00 96.3 55 18 183/88 98 I/O 09/17/16 09/17/16 09/17/16 09/18/16 09/18/16 09/18/16 07:00 15:00 23:00 07:00 15:00 23:00 Intake Total 0 ml 570 ml 480 ml 600 ml Output Total 300 ml 400 ml 500 ml 400 ml Balance -300 ml 170 ml -20 ml 200 ml Intake Oral 0 ml 120 ml 480 ml 600 ml IV Total 25 ml Other 425 ml Output Urine Total 300 ml 400 ml 500 ml 400 ml Estimated Blood Loss 0 ml # Voids 0 2 0 # Bowel Movements 0 1 0 Laboratory Laboratory Tests Test 09/18/16 06:40 White Blood Count 6.9 Red Blood Count 4.19 Hemoglobin 11.7 Hematocrit 34.9 Mean Corpuscular Volume 83.4 Mean Corpuscular Hemoglobin 28.0 Mean Corpuscular Hemoglobin 33.6 Concent Red Cell Distribution Width 15.7 Platelet Count 134 Mean Platelet Volume 8.5 Neutrophils (%) (Auto) 77.3 Lymphocytes (%) (Auto) 12.1 Monocytes (%) (Auto) 9.7 Eosinophils (%) (Auto) 0.7 Basophils (%) (Auto) 0.2 Neutrophils # (Auto) 5.4 Lymphocytes # (Auto) 0.8 Monocytes # (Auto) 0.7 Eosinophils # (Auto) 0.0 Basophils # (Auto) 0.0 CBC Comment DIFF FINAL Differential Comment Sodium Level 138 Potassium Level 3.6 Chloride Level 100 Carbon Dioxide Level 25.6 Anion Gap 12 Blood Urea Nitrogen 22 Creatinine 1.92 Estimat Glomerular Filtration 25 Rate Random Glucose 178 Calcium Level 8.8 Total Bilirubin 5.9 Aspartate Amino Transf 74 (AST/SGOT) Alanine Aminotransferase 104 (ALT/SGPT) Alkaline Phosphatase 211 Total Protein 6.5 Albumin 3.0 Imaging Last Impressions GI Procedure 09/17/16 0000 Signed Impressions: Service Date/Time: September 17:15 - CONCLUSION: ERCP as above. Cameron Almaguer MD Chest X-Ray 09/16/16 1057 Signed Impressions: Service Date/Time: Friday, September 16, 2016 11:20 - CONCLUSION: No acute disease. Trevin Fink MD Liver Ultrasound 09/16/16 0000 Signed Impressions: Service Date/Time: Friday, September 16, 2016 09:51 - CONCLUSION: 1. Choledocholithiasis. 2. Dilated common bile duct and intrahepatic biliary ductal dilatation. 3. Cholecystectomy. 4. Mild prominence right collecting system but no significant hydronephrosis. Trevin Fink MD Physical Exam HEENT: normocephalic; atraumatic; no jaundice. NECK: Neck is supple, no JVD, no lymphadenopathy. CHEST: Chest is clear to auscultation and percussion. CARDIAC: Regular rate and rhythm with no murmur gallop or rubs. ABDOMEN: Soft, nondistended, nontender; no hepatosplenomegaly; bowel sounds are present in all four quadrants. EXTREMITIES: No clubbing, cyanosis, or edema. SKIN: Normal; no rash; no jaundice. [place] SMOOTHER: No focal deficits; alert and oriented times three. (Lor LandisP) Assessment and Plan Plan ASSESSMENT: - Choledocholithiasis. ERCP with sphincterotomy stone extraction on (09/17/16). LFTs trending down, doing good, tolerating diet okay S/P Cholecystectomy 2013. Liver Ultrasound (09/16/16)----> 1. Choledocholithiasis. 2. Dilated common bile duct and intrahepatic biliary ductal dilatation. 3. Cholecystectomy. 4. Mild prominence right collecting system but no significant hydronephrosis. - HTN, DM, Hyperlipidemia per primary PLAN: - CINTIA - F/u with GI in 2 weeks - Gi will sign off - Pt seen and examined by Dr. Reveles and myself and this note is written on his behalf (Lor Landis) Physician Comments Patient seen and examined Agree with above Continue with current supportive care Monitor labs GI will sign off Bilirubin usually lags behind as LFTs improve post biliary obstruction but also there is the case of edema as a result of sphincterotomy and balloon extraction which may also delay bilirubin declined to normal (Dipak Reveles MD) Lor Landis Sep 18, 2016 18:43 Dipak Reveles MD Sep 18, 2016 23:52
[2016-09-19] VITALS: BP 142/66; PULSE 59; RESP 17; TEMP 96.6; O2SAT 96
[2016-09-19 04:00] VITALS: BP 139/66; PULSE 59; RESP 17; TEMP 98.3; O2SAT 96
[2016-09-19] MEDS: hydrOXYzine HCL 10 MG TAB PO PRN (06:18)
[2016-09-19] MEDS: INSULIN ASPART SUPPLEMENTAL SCALE SQ SCH ×2 (06:21→12:01)
[2016-09-19 07:51] LABS: ALT (GPT) 94 U/L (10-53); ANION GAP 11 MEQ/L (5-15); AST (GOT) 68 U/L (15-37); BLOOD UREA NITROGEN 23 MG/DL (7-18); CHLORIDE 102 MEQ/L (98-107); GLOMERULAR FILTRATION RATE 35 ML/MIN (>89); POTASSIUM 3.3 MEQ/L (3.5-5.1); SODIUM (NA) 139 MEQ/L (136-145)
[2016-09-19 07:54] LABS: ALKALINE PHOSPHATASE 199 U/L (45-117); TOTAL BILIRUBIN ADULT 4.8 MG/DL (0.2-1.0)
[2016-09-19 08:00] VITALS: BP 142/72; PULSE 62; RESP 16; TEMP 97.4; O2SAT 98
[2016-09-19] MEDS: TERAZOSIN HCL 1 MG CAP PO SCH (08:17)
[2016-09-19] MEDS: SODIUM CHLORIDE 0.9% FLUSH 5 ML FLUSH FLUSH SCH (08:18)
[2016-09-19] MEDS: CHLORTHALIDONE 50 MG TAB PO SCH (08:18)
[2016-09-19] MEDS: LISINOPRIL 20 MG TAB PO SCH (08:18)
[2016-09-19] MEDS: ATENOLOL 100 MG TAB PO SCH (08:18)
[2016-09-19] MEDS: PANTOPRAZOLE SOD 20 MG DELAYED RELEASE TAB PO SCH (08:18)
[2016-09-19] MEDS: ASPIRIN 81 MG CHEW TAB CHEW SCH (08:18)
[2016-09-19] MEDS: CHOLECALCIFEROL (VIT D3) 1000 UNIT TAB PO SCH (08:19)
[2016-09-19 10:33] VITALS: O2SAT 98
[2016-09-19 12:00] VITALS: BP 163/64; PULSE 56; RESP 16; TEMP 98.6; O2SAT 98
[2016-09-19] MEDS ORDERED: HYDR-755 PO (15:55)
[2016-09-19 16:00] VITALS: BP 115/61; PULSE 58; RESP 16; TEMP 98.2; O2SAT 98
--- NOTE | 2016-09-19 16:01 | HHI.DS ---
Discharge Summary Admission Date Sep 16, 2016 at 11:02 Discharge Date: Sep 19, 2016 Admitting Diagnosis choledocholithiasis (1) Choledocholithiasis with obstruction Diagnosis: Principal (2) Abdominal pain Diagnosis: Principal (3) Hypertension Diagnosis: Secondary (4) Diabetes Diagnosis: Secondary Consultants Dr. Juan Kaiser, Gastroenterology Brief History This is an 86-year-old female who presents to the emergency department having 2 years of intermittent epigastric abdominal pain. She reports that over the past week ever since she ate some greasy finish her pain has gotten a lot worse. She describes it as sharp in the upper abdomen, constant, worse with eating and making her not want to eat, associated with some nausea but no vomiting. She denies any fevers or chills. She was seen twice in the emergency department last week. On her second visit she had abnormal LFTs and was referred to Dr. Boswell. She has an appointment later today but her pain got so bad this morning and she feels very weak so she came back to the emergency department. Patient on lab work elevated LFT and on liver ultrasound dilated CBD and intrahepatic ductal dilation. CBC/BMP: 09/18/16 0640 09/19/16 0650 Significant Findings Laboratory Tests Test 09/17/16 09/18/16 09/19/16 06:31 06:40 06:50 Platelet Count 140 TH/MM3 134 TH/MM3 (150-450) (150-450) Monocytes (%) (Auto) 12.7 % 9.7 % (0.0-8.0) (0.0-8.0) Potassium Level 3.4 MEQ/L 3.3 MEQ/L (3.5-5.1) (3.5-5.1) Blood Urea Nitrogen 20 MG/DL (7-18) 22 MG/DL (7-18) 23 MG/DL (7-18) Creatinine 1.42 MG/DL 1.92 MG/DL 1.43 MG/DL (0.50-1.00) (0.50-1.00) (0.50-1.00) Estimat Glomerular Filtration 35 ML/MIN (>89) 25 ML/MIN (>89) 35 ML/MIN (>89) Rate Total Bilirubin 5.4 MG/DL 5.9 MG/DL 4.8 MG/DL (0.2-1.0) (0.2-1.0) (0.2-1.0) Direct Bilirubin 4.4 MG/DL (0.0-0.2) Indirect Bilirubin 1.0 MG/DL (0.0-0.8) Aspartate Amino Transf 117 U/L (15-37) 74 U/L (15-37) 68 U/L (15-37) (AST/SGOT) Alanine Aminotransferase 147 U/L (10-53) 104 U/L (10-53) 94 U/L (10-53) (ALT/SGPT) Alkaline Phosphatase 230 U/L 211 U/L 199 U/L (45-117) (45-117) (45-117) Albumin 3.3 GM/DL 3.0 GM/DL 3.0 GM/DL (3.4-5.0) (3.4-5.0) (3.4-5.0) Hematocrit 34.9 % (35.0-46.0) Neutrophils (%) (Auto) 77.3 % (16.0-70.0) Lymphocytes # (Auto) 0.8 TH/MM3 (1.0-4.8) Random Glucose 178 MG/DL 147 MG/DL (74-106) (74-106) PE at Discharge General: NAD, AAOx3. Jaundice. Chest: CTA bilateral Cardiac: Regular Abd: +BS, soft ND/NT Ext: No edema Hospital Course (1) Choledocholithiasis with obstruction Status: Acute Plan: - Pt admitted with abdominal pain and elevated LFTs. - Liver Ultrasound (09/16/16)----> Choledocholithiasis with dilated common bile duct and intrahepatic biliary ductal dilatation, cholecystectomy, mild prominence right collecting system but no significant hydronephrosis. - WBC was WNL but she had had low grade fever on 09/16 - Pt seen by Gastroenterology - Pt underwent ERCP with sphincterotomy and balloon extraction on 09/17/16 which noted choledocholithiasis and small duodenal diverticulum performed by Dr. Juan Kaiser - Repeat LFTs all trending slowly downward - Pt tolerating PO intake. - Atarax PRN for itching - discharge to home, see discharge orders - repeat LFTs outpt on 09/23/16 (2) Abdominal pain Status: Acute Plan: - As above (3) Hypertension Status: Chronic Plan: - Improving - Home meds continued - Vasotec PRN (4) Diabetes Status: Chronic Plan: - NovoLog sliding scale - Accu checks - Pt will resume outpt regimen upon discharge as she resumes her usual diet Pt Condition on Discharge: Stable Discharge Disposition: Discharge Home Discharge Instructions DIET: Follow Instructions for: Heart Healthy Diet, Low Fat Diet Activities you can perform: Regular-No Restrictions Follow up Referrals: Gastroenterology - 2 Weeks with Fabiola Kaiser MD PCP Follow-up - [address] Bela Us New Medications: Hydroxyzine HCl (Hydroxyzine HCl) 10 Mg Tab 10 MG PO Q6H PRN ITCHING #20 Ref 0 TAB Continued Medications: Aspirin (Aspirin) 81 Mg Chew 81 MG CHEW DAILY Ref 0 TAB Atenolol (Atenolol) 100 Mg Tab 100 MG PO DAILY Blood Pressure Management #30 Ref 0 TAB Chlorthalidone (Chlorthalidone) 100 Mg Tab 100 MG PO DAILY Ref 0 TAB Cholecalciferol (Vitamin D-3) 2,000 Unit Tab 1 TAB PO BID Insulin Aspart Inj (Novolog Inj) 1,000 Unit/10 Ml Vial 15 UNITS SQ TIDAC Blood Sugar Management #10 Ref 0 ML Insulin Degludec Inj (Tresiba Flextouch Pen Inj) 300 unit/3 ML Pen 50 UNITS SQ DAILY Blood Sugar Management #15 Ref 0 ML Lisinopril (Lisinopril) 20 Mg Tab 20 MG PO BID #30 Ref 0 TAB Omeprazole (Omeprazole) 20 Mg Tab 20 MG PO DAILY #30 Ref 0 TAB Polyethylene Glycol-Propylene Glycol Opth Drp (Systane Opth Drops) 0.4-0.3% Soln 1-2 DROP EACH EYE PRN PRN DRY EYE #1 Ref 0 BOTTLE Sucralfate (Carafate) 1 Gm Tab 1 GM PO QID On empty stomach PRN epigastric pain #120 Ref 0 TAB Terazosin (Terazosin) 2 Mg Cap 4 MG PO BID #30 Ref 0 CAP Discontinued Medications: Aloe Vera Liq (Aloe Vera Juice Liq) 99.8% Liqd 5 ML PO BID Misc Natural Products (Curcumax Pro) 1 Tab Tab 1 TAB PO DAILY Multiple Vitamins W/ Minerals (Multi Complete) 1 Cap Cap 1 TAB PO DAILY Nutritional Supplements (Cholesterol Defense) 1 Tab Tab 1 TAB PO BID Ondansetron Odt (Zofran Odt) 4 Mg Tab 4 MG SL Q6HR PRN Nausea/Vomiting #6 Ref 0 TAB Red Yeast Rice Extract (Red Yeast Rice) 600 Mg Tab 1 CAP PO BID Rosuvastatin (Rosuvastatin) 40 Mg Tab 40 MG PO DAILY Cholesterol Management #30 Ref 0 TAB S-Adenosylmethionine (Shaq-E Complete) 400 Mg Tab 400 MG PO DAILY Ref 0 TAB Sudarshan Pablo DO Sep 19, 2016 16:01
--- NOTE | 2016-09-19 16:03 | HHI.DCPOC ---
Discharge Care Plan Diagnosis: (1) Choledocholithiasis with obstruction (2) Abdominal pain (3) Diabetes (4) Hypertension Goals to Promote Your Health * To prevent worsening of your condition and complications * To maintain your health at the optimal level Directions to Meet Your Goals Take your medications as prescribed Follow your dietary instruction Follow activity as directed Keep your appointments as scheduled Take your immunizations and boosters as scheduled If your symptoms worsen call your PCP, if no PCP go to Urgent Care Center or Emergency Room Smoking is Dangerous to Your Health. Avoid second hand smoke Call the 24-hour hour crisis hotline for domestic abuse at Sudarshan Pablo DO Sep 19, 2016 16:03
[2016-09-19] MEDS ORDERED: OXYC1CAP PO (16:09)
== END 2016-09-19 17:43 | disposition home or self-care (01) | DRG 446 ==
LOC: PHED 08:06 → PHEDA 11:02 → HOCB 19:07
PROVIDERS: ADMIT Hospitalist; ATTEND Hospitalist
PROC: 0F998ZZ Drainage of Common Bile Duct, Via Natural or Artificial Opening Endoscopic (ICD-10-PCS; 2016-09-17)
PROC: BF111ZZ Fluoroscopy of Biliary and Pancreatic Ducts using Low Osmolar Contrast (ICD-10-PCS; 2016-09-17)
PROC: 0FC98ZZ Extirpation of Matter from Common Bile Duct, Via Natural or Artificial Opening Endoscopic (ICD-10-PCS; principal; 2016-09-17 16:35)
DX: K80.51 Calculus of bile duct without cholangitis or cholecystitis with obstruction (principal); E11.9 Type 2 diabetes mellitus without complications; I10 Essential (primary) hypertension; Z79.4 Long term (current) use of insulin; G43.909 Migraine, unspecified, not intractable, without status migrainosus; K21.9 Gastro-esophageal reflux disease without esophagitis; H91.90 Unspecified hearing loss, unspecified ear; E78.00 Pure hypercholesterolemia, unspecified; F41.9 Anxiety disorder, unspecified; Z82.49 Family history of ischemic heart disease and other diseases of the circulatory system; E78.5 Hyperlipidemia, unspecified; Z90.49 Acquired absence of other specified parts of digestive tract; K57.10 Diverticulosis of small intestine without perforation or abscess without bleeding
CPT/HCPCS: 71010; 74330; 76705; 80048; 80053; 80076; 80329; 82948; 83690; 83735; 85025; 93005; 96361; 96374; 96375; C1769; G0480; J1815; J2250; J2270; J2370; J2405; J3010; J7040; Q9967

== ENCOUNTER 2018-01-03 13:26 | Emergency (ER) | payer MEDICARE ==
[~2018-01-03] VITALS: Ht 157.5 cm; Wt 77.0 kg
[~2018-01-03 13:26] MED LIST changes: -ALOELIQ9 PO; +ASPI-516 CHEW; -ASPI81CH CHEW; -CHOLTAB PO; +HYDR-755 PO; -MULTCAP13 PO; -OMEP20TA PO; +OMEP20TA93 PO; -OMEP40CA2 PO; +OXYC1CAP PO; -RED600TA PO; -ROSU1TAB10 PO; -ZOFR4TAB3 SL; -[UNRECOGNIZED DRUG - CODE] PO; -[UNRECOGNIZED DRUG - CODE] PO
[2018-01-03 13:41] VITALS: BP 159/70; PULSE 57; RESP 16; TEMP 98.2; O2SAT 98
[2018-01-03] MEDS ORDERED: INSU1INJ14 SQ (14:15)
[2018-01-03] MEDS ORDERED: AMLO10TA2 PO (14:15)
[2018-01-03] MEDS ORDERED: CHLOR50 PO (14:15)
[2018-01-03] MEDS ORDERED: ROSU1TAB10 PO (14:15)
[2018-01-03] MEDS ORDERED: DAILTAB43 PO (14:15)
--- NOTE | 2018-01-03 14:20 | PD ---
HPI Chief Complaint: chest pain Time Seen by Provider: 13:57 Travel History International Travel<30 days: No Contact w/Intl Traveler<30days: No Traveled to known affect area: No History of Present Illness HPI 87yo F with PMH of DM, HTN presents to the ED because of abnormal EKG at urgent care today. Pt said she has been having intermittent left sided chest pressure for 2 to 3 months but has been ignoring it. Said this episode was maybe 1 hour ago and was mild, nonradiating. No exacerbating or alleviating factors. Denies any sob, nausea, diaphoresis, fever, cough, vomiting, abdominal pain, focal weakness or numbness. Pt said she had stress test 2 years ago an it was normal. Said she followed up with her primary care physician recently. PFSH Past Medical History Hx Anticoagulant Therapy: Yes (asa 81mg) Arthritis: Yes (RIGHT SHOULDER) Blood Disorders: No Anxiety: Yes Depression: No Heart Rhythm Problems: No Cancer: No Cardiac Catheterization: No Cardiovascular Problems: Yes (STRESS TEST 2016- NEGATIVE) High Cholesterol: Yes Chemotherapy: No Chest Pain: No Congestive Heart Failure: No Diabetes: Yes (type 2) Patient Takes Glucophage: No Diminished Hearing: Yes Endocrine: Yes Gastrointestinal Disorders: Yes GERD: Yes Genitourinary: No Hepatitis: No Hiatal Hernia: No Hypertension: Yes Immune Disorder: No Implanted Vascular Access Dvce: No Kidney Stones: Yes Musculoskeletal: No Neurologic: Yes (MIGRAINE HEADACHE) Psychiatric: Yes Reproductive: No Respiratory: No Immunizations Current: Yes Radiation Therapy: No Thyroid Disease: No Tetanus Vaccination: > 5 Years Influenza Vaccination: Yes PNEUMOCCOCAL Vaccine (Year): 1 ?: Not Menopausal: Yes Past Surgical History Body Medical Devices: ACID REFLEX Cholecystectomy: Yes Oral Surgery: Yes (WISDOM TEETH EXTRACT.) Pacemaker: No Other Surgery: No Family History Family Myocardial Infarction: Yes (MOTHER OF HEART ATTACK IN HER 70'S) Social History Alcohol Use: No Tobacco Use: No Substance Use: No Allergies-Medications (Allergen,Severity, Reaction): Coded Allergies: No Known Allergies (Verified Adverse Reaction, Unknown, 01/03/18) Reported Meds & Prescriptions Reported Meds & Active Scripts Active Isosorbide Mononitrate ER (Isosorbide Mononitrate) 60 Mg Tab 60 Mg PO DAILY Reported Tresiba Flextouch Pen Inj (Insulin Degludec Inj) 300 unit/3 ML Pen 200 Units SQ DAILY Rosuvastatin (Rosuvastatin Calcium) 40 Mg Tab 40 Mg PO HS Daily Value (Multivitamin) 1 Each Tablet Unknown Dose PO DAILY Chlorthalidone 50 Mg Tab 50 Mg PO DAILY Amlodipine (Amlodipine Besylate) 10 Mg Tab 10 Mg PO DAILY Vitamin D-3 (Cholecalciferol) 2,000 Unit Tab 1 Tab PO BID Terazosin (Terazosin HCl) 2 Mg Cap 4 Mg PO BID Systane Opth Drops (Polyethylene Glycol-Propylene Glycol Opth Drp) 0.4-0.3% Soln 1-2 Drop EACH EYE PRN PRN Omeprazole 20 Mg Tab 20 Mg PO DAILY Novolog Inj (Insulin Aspart) 1,000 Unit/10 Ml Vial 15 Units SQ TIDAC Lisinopril 20 Mg Tab 20 Mg PO BID Atenolol 100 Mg Tab 100 Mg PO DAILY Aspirin 81 Mg Chew 81 Mg CHEW DAILY Review of Systems Except as stated in HPI: all other systems reviewed are Neg Physical Exam Narrative GENERAL: 87yo F not in distress. SKIN: Focused skin assessment warm/dry. HEAD: Atraumatic. Normocephalic. EYES: Pupils equal and round. No scleral icterus. No injection or drainage. ENT: No nasal bleeding or discharge. Mucous membranes pink and moist. NECK: Trachea midline. No JVD. CARDIOVASCULAR: Regular rate and rhythm. No murmur appreciated. RESPIRATORY: No accessory muscle use. Clear to auscultation. Breath sounds equal bilaterally. GASTROINTESTINAL: Abdomen soft, non-tender, nondistended. MUSCULOSKELETAL: No obvious deformities. No clubbing. No cyanosis. Trace bilateral lower extremity edema. NEUROLOGICAL: Awake and alert. No obvious cranial nerve deficits. Motor grossly within normal limits. Normal speech. PSYCHIATRIC: Appropriate mood and affect; insight and judgment normal. Data Data Last Documented VS Vital Signs Date Time Temp Pulse Resp B/P (MAP) Pulse Ox O2 Delivery O2 Flow Rate FiO2 01/03/18 17:15 50 16 154/79 (104) 97 01/03/18 14:49 Room Air 01/03/18 13:41 98.2 Orders Orders Electrocardiogram (01/03/18 14:16) Basic Metabolic Panel (Bmp) (01/03/18 14:16) Complete Blood Count With Diff (01/03/18 14:16) Prothrombin Time / Inr (Pt) (01/03/18 14:16) Act Partial Throm Time (Ptt) (01/03/18 14:16) Troponin I (01/03/18 14:16) Chest, Single Ap (01/03/18 14:16) Aspirin (Aspirin) (01/03/18 14:30) Ed Discharge Order (01/03/18 16:10) Labs Laboratory Tests Test 01/03/18 14:47 White Blood Count 4.6 TH/MM3 Red Blood Count 4.22 MIL/MM3 Hemoglobin 12.0 GM/DL Hematocrit 34.3 % Mean Corpuscular Volume 81.2 FL Mean Corpuscular Hemoglobin 28.4 PG Mean Corpuscular Hemoglobin Concent 35.0 % Red Cell Distribution Width 14.7 % Platelet Count 123 TH/MM3 Mean Platelet Volume 8.7 FL Neutrophils (%) (Auto) 61.4 % Lymphocytes (%) (Auto) 27.5 % Monocytes (%) (Auto) 6.2 % Eosinophils (%) (Auto) 4.2 % Basophils (%) (Auto) 0.7 % Neutrophils # (Auto) 2.8 TH/MM3 Lymphocytes # (Auto) 1.3 TH/MM3 Monocytes # (Auto) 0.3 TH/MM3 Eosinophils # (Auto) 0.2 TH/MM3 Basophils # (Auto) 0.0 TH/MM3 CBC Comment DIFF FINAL Differential Comment Prothrombin Time 11.1 SEC Prothromb Time International Ratio 1.1 RATIO Activated Partial Thromboplast Time 23.5 SEC Blood Urea Nitrogen 27 MG/DL Creatinine 1.60 MG/DL Random Glucose 170 MG/DL Calcium Level 8.9 MG/DL Sodium Level 140 MEQ/L Potassium Level 4.6 MEQ/L Chloride Level 108 MEQ/L Carbon Dioxide Level 23.6 MEQ/L Anion Gap 8 MEQ/L Estimat Glomerular Filtration Rate 31 ML/MIN Troponin I LESS THAN 0.02 NG/ML MDM Medical Decision Making Medical Screen Exam Complete: Yes Emergency Medical Condition: Yes Interpretation(s) EKG from urgent care showed sinus bradycardia at 50bpm. LBBB. Mild ST depression V5-V6. Pt had similar LBBB with ST depression V5, V6 in prior EKG. The ST depression may be slightly more. EKG here: Sinus bradycardia at 53bpm. LAD. LBBB. Mild ST depression again seen V5, V6. Differential Diagnosis ACS vs. anxiety vs. GERD Narrative Course 87yo F with HTN, DM here with chest pain. The LBBB seen in EKG is old. Pt given aspirin. Pt seen at the end of my shift. Labs including cardiac enzymes were drawn. Sign out to next team to follow up and reevaluate. Diagnosis Primary Impression: Chest pain Qualified Codes: R07.9 - Chest pain, unspecified Scripts Isosorbide Mononitrate ER (Isosorbide Mononitrate ER) 60 Mg Tab 60 MG PO DAILY for Prevent Chest Pain, #30 TAB 0 Refills Prov: Nicole Mccann MD 01/03/18 Dorcas Mccormick DO Jan 03, 2018 14:20
[2018-01-03] MEDS ORDERED: ASPIRIN 325 MG TAB PO ONE (14:30)
--- NOTE | 2018-01-03 14:46 | RADRPT ---
EXAM DATE: 01/03/2018 2:27 PM EDT AGE/SEX: 87 years / Female INDICATIONS: Chest pain CLINICAL DATA: This is the patient's initial encounter. Patient reports that signs and symptoms have been present for 1 month and indicates a pain score of 2/10. MEDICAL/SURGICAL HISTORY: Hypertension. Gastroesophageal reflux disease. Diabetes. Cholecyste ctomy. COMPARISON: [facility], CHEST SINGLE AP, 09/16/2016. . FINDINGS: Cardiomegaly with mild interstitial changes possible failure. No pleural effusion No infiltrate No pneumothorax The portion of the bony skeleton visualized is unremarkable. CONCLUSION: Mild cardiomegaly with possible early failure Electronically signed by: Adriel Wise MD 01/03/2018 2:45 PM EDT
[2018-01-03 15:00] LABS: AUTOMATED NEUTROPHIL # 2.8 TH/MM3 (1.8-7.7); BASOPHIL % 0.7 % (0.0-2.0); EOSINOPHIL # 0.2 TH/MM3 (0-0.4); EOSINOPHIL % 4.2 % (0.0-4.0); HEMATOCRIT 34.3 % (35.0-46.0); LYMPH % 27.5 % (9.0-44.0); LYMPHOCYTE # 1.3 TH/MM3 (1.0-4.8); MEAN CELL VOLUME 81.2 FL (80.0-100.0); MEAN CORPUSCULAR HEMOGLOBIN 28.4 PG (27.0-34.0); MEAN PLATELET VOLUME 8.7 FL (7.0-11.0); MONO % 6.2 % (0.0-8.0); MONOCYTE # 0.3 TH/MM3 (0-0.9); NEUT % 61.4 % (16.0-70.0); PLATELET COUNT 123 TH/MM3 (150-450); RED BLOOD COUNT 4.22 MIL/MM3 (4.00-5.30); RED CELL DISTRIBUTION WIDTH 14.7 % (11.6-17.2); WHITE BLOOD COUNT 4.6 TH/MM3 (4.0-11.0)
[2018-01-03 15:05] LABS: CHLORIDE 108 MEQ/L (98-107); SODIUM (NA) 140 MEQ/L (136-145)
[2018-01-03 15:07] LABS: CALCIUM 8.9 MG/DL (8.5-10.1)
[2018-01-03 15:08] LABS: BICARBONATE 23.6 MEQ/L (21.0-32.0); BLOOD UREA NITROGEN 27 MG/DL (7-18); GLUCOSE,RANDOM 170 MG/DL (74-106)
[2018-01-03 15:11] LABS: GLOMERULAR FILTRATION RATE 31 ML/MIN (>89)
[2018-01-03 15:12] LABS: INTERNATIONAL NORMALIZED RATIO 1.1 RATIO; PROTHROMBIN TIME - PATIENT 11.1 SEC (9.8-11.6)
[2018-01-03 15:16] LABS: TROPONIN I LESS THAN 0.02 NG/ML (0.02-0.05)
[2018-01-03] MEDS ORDERED: ISOS60TA PO (16:08)
--- NOTE | 2018-01-03 16:10 | PD ---
Data Data Last Documented VS Vital Signs Date Time Temp Pulse Resp B/P (MAP) Pulse Ox O2 Delivery O2 Flow Rate FiO2 01/03/18 14:49 52 16 97 Room Air 01/03/18 13:41 98.2 159/70 (99) Orders Orders Electrocardiogram (01/03/18 14:16) Basic Metabolic Panel (Bmp) (01/03/18 14:16) Complete Blood Count With Diff (01/03/18 14:16) Prothrombin Time / Inr (Pt) (01/03/18 14:16) Act Partial Throm Time (Ptt) (01/03/18 14:16) Troponin I (01/03/18 14:16) Chest, Single Ap (01/03/18 14:16) Aspirin (Aspirin) (01/03/18 14:30) Labs Laboratory Tests Test 01/03/18 14:47 White Blood Count 4.6 TH/MM3 Red Blood Count 4.22 MIL/MM3 Hemoglobin 12.0 GM/DL Hematocrit 34.3 % Mean Corpuscular Volume 81.2 FL Mean Corpuscular Hemoglobin 28.4 PG Mean Corpuscular Hemoglobin Concent 35.0 % Red Cell Distribution Width 14.7 % Platelet Count 123 TH/MM3 Mean Platelet Volume 8.7 FL Neutrophils (%) (Auto) 61.4 % Lymphocytes (%) (Auto) 27.5 % Monocytes (%) (Auto) 6.2 % Eosinophils (%) (Auto) 4.2 % Basophils (%) (Auto) 0.7 % Neutrophils # (Auto) 2.8 TH/MM3 Lymphocytes # (Auto) 1.3 TH/MM3 Monocytes # (Auto) 0.3 TH/MM3 Eosinophils # (Auto) 0.2 TH/MM3 Basophils # (Auto) 0.0 TH/MM3 CBC Comment DIFF FINAL Differential Comment Prothrombin Time 11.1 SEC Prothromb Time International Ratio 1.1 RATIO Activated Partial Thromboplast Time 23.5 SEC Blood Urea Nitrogen 27 MG/DL Creatinine 1.60 MG/DL Random Glucose 170 MG/DL Calcium Level 8.9 MG/DL Sodium Level 140 MEQ/L Potassium Level 4.6 MEQ/L Chloride Level 108 MEQ/L Carbon Dioxide Level 23.6 MEQ/L Anion Gap 8 MEQ/L Estimat Glomerular Filtration Rate 31 ML/MIN Troponin I LESS THAN 0.02 NG/ML [facility] Supervised Visit with RAOUL: No Narrative Course This is an 87-year-old female who presents to the emergency department with stuttering chest discomfort that started exertional and has progressed to occurring at rest associated with some nausea and radiation to the back. My concern is that this represents unstable angina. She has an old left bundle branch block on EKG. Labs were obtained including a troponin which is normal. Her symptoms have been going on for months but seem to be increasing in severity. I discussed her symptoms with Dr. Romeo who is on-call for cardiology. The patient had a stress test once before and she said she felt like she was going to and she says she would rather of sudden then experience that again. She is not sure she wants to undergo a heart catheterization given her age. She also has some renal insufficiency which may make the risks and benefits of this procedure more complex. Dr. Romeo agrees to see her in the office later this week. He recommended she be started on Imdur 60 mg a day and I asked her to take a full dose aspirin until she sees him. Patient understands the risks versus benefits of discharge versus admission and would like to go home. Diagnosis Primary Impression: Chest pain Qualified Codes: R07.9 - Chest pain, unspecified Referrals: Juve Romeo DO Patient Instructions: General Instructions Additional Instruction: If you develop severe chest pain, shortness of breath, sweating, lightheadedness , dizziness or difficulty breathing return to the emergency department immediately. Follow-up with Dr. Romeo in the office as soon as possible. Med/Other Pt SpecificInfo: Prescription(s) given Scripts Isosorbide Mononitrate ER (Isosorbide Mononitrate ER) 60 Mg Tab 60 MG PO DAILY for Prevent Chest Pain, #30 TAB 0 Refills Prov: Nicole Mccann MD 01/03/18 Disposition: 01 DISCHARGE HOME Condition: Stable Nicole Mccann MD Jan 03, 2018 16:09
[2018-01-03 17:15] VITALS: BP 154/79
--- NOTE | 2018-01-04 16:49 | EKG ---
Date Performed: 01/03/2018 Time Performed: 14:34:29 PTAGE: 87 years EKG: SINUS BRADYCARDIA MARKED LEFT AXIS DEVIATION LEFT BUNDLE BRANCH BLOCK ABNORMAL ECG PREVIOUS TRACING : 09/16/2016 11.07 Since the previous tracing, no significant change noted DOCTOR: Dieudonne Hutchison Interpretating Date/Time 01/04/2018 16:45:31
== END 2018-01-03 17:26 | disposition home or self-care (01) ==
LOC: PHED 13:26
DX: R07.89 Other chest pain (principal); R94.31 Abnormal electrocardiogram [ECG] [EKG]; I10 Essential (primary) hypertension; E11.9 Type 2 diabetes mellitus without complications; R11.0 Nausea; N28.9 Disorder of kidney and ureter, unspecified; Z79.82 Long term (current) use of aspirin
CPT/HCPCS: 71045; 80048; 84484; 85025; 85610; 85730; 93005; 99285